=== PATIENT | female | born 1965 | race Caucasian/White ===

== ENCOUNTER 2019-09-14 10:50 | Emergency (ER) | payer OTHER ==
[2019-09-14] MEDS ORDERED: HYDROCODONE/APAP 5/325 MG TAB ONE (13:06)
[2019-09-14] MEDS ORDERED: IBUPROFEN 200 MG TAB PO ONE (13:10)
--- NOTE | 2019-09-14 13:35 | RAD REPORT ---
EXAM DESCRIPTION: RAD - Hand Right 3 View - 09/14/2019 1:19 pm CLINICAL HISTORY: PAIN COMPARISON: No comparisons FINDINGS: No bone or joint abnormality is detected. Moderate radiocarpal arthritis.
--- NOTE | 2019-09-14 13:54 | EDPHYS ---
Physician Documentation [facility] Name: Kat Britton Age: 53 yrs Sex: Female : 1965 Arrival Date: 09/14/2019 Time: 11:05 Bed 10 Private MD: ED Physician Karlos Hickey HPI: 09/14 13:02 This 53 yrs old Female presents to ER via Ambulatory with complaints of Hand pm1 Swelling. 13:02 The patient or guardian reports pain, swelling. The complaints affect the lateral pm1 aspect of right hand. Context: The problem was sustained at home, resulted from a fall, while walking, brace her fall against a wall using her right hand. 13:02 Onset: The symptoms/episode began/occurred yesterday. Modifying factors: The symptoms pm1 are alleviated by nothing, the symptoms are aggravated by movement. Associated signs and symptoms: Pertinent negatives: cyanosis distally, decreased sensation distally, numbness distally, tingling distally. Severity of symptoms: in the emergency department the symptoms are actually worse. The patient has not experienced similar symptoms in the past. The patient has not recently seen a physician. No head injury, headache, LOC, neck pain. Historical: - Allergies: 11:29 Sulfa (Sulfonamide Antibiotics); ss 11:29 tramadol; ss - Immunization history:: Flu vaccine is not up to date. - Social history:: Smoking status: Patient uses tobacco products, smokes one-half pack cigarettes per day. - Ebola Screening: : Patient denies exposure to infectious person Patient denies travel to an Ebola-affected area in the 21 days before illness onset. ROS: 13:02 Constitutional: Negative for fever, chills, and weight loss, Eyes: Negative for injury, pm1 pain, redness, and discharge, ENT: Negative for injury, pain, and discharge, Neck: Negative for injury, pain, and swelling, Cardiovascular: Negative for chest pain, palpitations, and edema, Respiratory: Negative for shortness of breath, cough, wheezing, and pleuritic chest pain, Abdomen/GI: Negative for abdominal pain, nausea, vomiting, diarrhea, and constipation, Back: Negative for injury and pain. 13:02 Skin: Negative for injury, rash, and discoloration, Neuro: Negative for headache, weakness, numbness, tingling, and seizure. 13:02 MS/extremity: Positive for pain, swelling, of the right hand, Negative for abrasion, erythema. Exam: 13:02 Constitutional: This is a well developed, well nourished patient who is awake, alert, pm1 and in no acute distress. Head/Face: Normocephalic, atraumatic. Neck: Trachea midline, no thyromegaly or masses palpated, and no cervical lymphadenopathy. Supple, full range of motion without nuchal rigidity, or vertebral point tenderness. No Meningismus. Chest/axilla: Normal chest wall appearance and motion. Nontender with no deformity. No lesions are appreciated. Cardiovascular: Regular rate and rhythm with a normal S1 and S2. No gallops, murmurs, or rubs. Normal PMI, no JVD. No pulse deficits. Respiratory: Lungs have equal breath sounds bilaterally, clear to auscultation and percussion. No rales, rhonchi or wheezes noted. No increased work of breathing, no retractions or nasal flaring. Back: No spinal tenderness. No costovertebral tenderness. Full range of motion. Skin: Warm, dry with normal turgor. Normal color with no rashes, no lesions, and no evidence of cellulitis. 13:02 Musculoskeletal/extremity: Extremities: grossly normal except: noted in the lateral aspect of right hand: swelling, tenderness, There is no evidence of decreased ROM, deformity. Vital Signs: 11:29 BP 161 / 94; Pulse 84; Resp 17; Temp 98.0; Pulse Ox 98% on R/A; Weight 47.17 kg; Height ss 5 ft. 7 in. (170.18 cm); Pain 10/10; 11:29 Body Mass Index 16.29 (47.17 kg, 170.18 cm) Procedures: 13:54 Performed Ring removal from 4th right finger. Due to swelling, patient unable to remove pm1 finger with lubricant and using compression dressing. Ring removed with ring cutter. 14:07 Splinting: Splint applied to right hand using wrist splint, applied by nurse. Examined pm1 by me, post splint application: neurovascular intact, 2+ distal pulses palpable, brisk capillary refill noted, Patient tolerated well. MDM: 12:32 Patient medically screened. [facility] 13:50 Data reviewed: vital signs. Data interpreted: Pulse oximetry: on room air is 98 %. pm1 Interpretation: normal. Counseling: I had a detailed discussion with the patient and/or guardian regarding: the historical points, exam findings, and any diagnostic results supporting the discharge/admit diagnosis, radiology results, the need for outpatient follow up, to return to the emergency department if symptoms worsen or persist or if there are any questions or concerns that arise at home. 09/14 12:47 Order name: Hand Right 3 View XRAY; Complete Time: 13:54 pm1 09/14 13:50 Order name: Wrist Splint; Complete Time: 14:06 pm1 Administered Medications: 13:16 Not Given (Patient Refused): [place] 5 mg-325 mg 1 tabs PO once; RASS on ADMIN: Combtv4, ss Very Agttd3, Agttd2, Rstlss1, AlertClm0, Drwsy-1, Lt Sdtn-2, Mod Sdtn-3, Dp Sdtn-4, UnArsble-5 13:17 Drug: Ibuprofen 600 mg Route: PO; 14:06 Follow up: Response: No adverse reaction; Pain is unchanged, physician notified Disposition: 21:25 Co-signature as Attending Physician, Karlos Hickey MD I agree with the assessment and wa plan of care. Disposition: 09/14/19 13:52 Discharged to Home. Impression: Sprain of unspecified part of right wrist and hand. - Condition is Stable. - Discharge Instructions: Wrist Splint, Hand Pain. - Medication Reconciliation Form, Thank You Letter, Antibiotic Education, Prescription Opioid Use form. - Follow up: Emergency Department; When: As needed; Reason: Worsening of condition. Follow up: Private Physician; When: 2 - 3 days; Reason: Recheck today's complaints, Continuance of care, Re-evaluation by your physician. - Problem is new. - Symptoms have improved. Signatures: Dispatcher [employer] EDCalvin Tucker MD MD cha Smirch, Shelby, RN RN Johnathan Maldonado, [employer] pm1 Karlos Hickey MD MD wa Corrections: (The following items were deleted from the chart) 14:07 13:52 09/14/2019 13:52 Discharged to Home. Impression: Sprain of unspecified part of ss right wrist and hand. Condition is Stable. Forms are Medication Reconciliation Form, Thank You Letter, Antibiotic Education, Prescription Opioid Use. Follow up: Emergency Department; When: As needed; Reason: Worsening of condition. Follow up: Private Physician; When: 2 - 3 days; Reason: Recheck today's complaints, Continuance of care, Re-evaluation by your physician. Problem is new. Symptoms have improved. pm1
--- NOTE | 2019-09-14 13:54 | ER ---
Nurse's Notes [facility] Name: Kat Britton Age: 53 yrs Sex: Female : 1965 Arrival Date: 09/14/2019 Time: 11:05 Bed 10 Private MD: Diagnosis: Sprain of unspecified part of right wrist and hand Presentation: 09/14 11:28 Presenting complaint: Patient states: R hand pain and swelling that began yesterday. No ss known injury. Transition of care: patient was not received from another setting of care. Onset of symptoms was September 13, 2019. Risk Assessment: Do you want to hurt yourself or someone else? Patient reports no desire to harm self or others. Initial Sepsis Screen: Does the patient meet any 2 criteria? No. Patient's initial sepsis screen is negative. Does the patient have a suspected source of infection? No. Patient's initial sepsis screen is negative. Care prior to arrival: None. 11:28 Method Of Arrival: Ambulatory ss 11:28 Acuity: REBECCA 4 ss Historical: - Allergies: 11:29 Sulfa (Sulfonamide Antibiotics); ss 11:29 tramadol; ss - Immunization history:: Flu vaccine is not up to date. - Social history:: Smoking status: Patient uses tobacco products, smokes one-half pack cigarettes per day. - Ebola Screening: : Patient denies exposure to infectious person Patient denies travel to an Ebola-affected area in the 21 days before illness onset. Screenin:35 Abuse screen: Denies threats or abuse. Denies injuries from another. Nutritional ss screening: No deficits noted. Tuberculosis screening: Never had TB. Fall Risk None identified. Assessment: 12:35 General: Appears uncomfortable, Behavior is calm, cooperative. Pain: Complains of pain ss in right hand Pain currently is 10 out of 10 on a pain scale. Quality of pain is described as tender, throbbing. Neuro: Level of Consciousness is awake, alert, obeys commands. Cardiovascular: Capillary refill < 3 seconds is brisk in bilateral fingers Pulses are palpable in right radial artery and left radial artery. Respiratory: Airway is patent Respiratory effort is even, unlabored, Respiratory pattern is regular, symmetrical. GI: Patient currently denies diarrhea, nausea, vomiting. : No signs and/or symptoms were reported regarding the genitourinary system. Derm: Skin is intact, is healthy with good turgor, Skin is pink, warm \T\ dry. normal. Musculoskeletal: Range of motion: intact in all extremities, Swelling present in right hand. Vital Signs: 11:29 BP 161 / 94; Pulse 84; Resp 17; Temp 98.0; Pulse Ox 98% on R/A; Weight 47.17 kg; Height ss 5 ft. 7 in. (170.18 cm); Pain 10/10; 11:29 Body Mass Index 16.29 (47.17 kg, 170.18 cm) ED Course: 11:05 Patient arrived in ED. ss 11:29 Triage completed. ss 11:29 Arm band placed on right wrist. ss 12:28 Johnathan Maldonado NP is PHCP. pm1 12:29 Karlos Hickey MD is Attending Physician. pm1 12:35 Erma Jiang RN is Primary Nurse. ss 12:35 Patient has correct armband on for positive identification. Bed in low position. Call ss light in reach. 13:26 Hand Right 3 View XRAY In Process Unspecified. EDMS 14:06 No provider procedures requiring assistance completed. Patient did not have IV access ss during this emergency room visit. Administered Medications: 13:16 Not Given (Patient Refused): [place] 5 mg-325 mg 1 tabs PO once; RASS on ADMIN: Combtv4, ss Very Agttd3, Agttd2, Rstlss1, AlertClm0, Drwsy-1, Lt Sdtn-2, Mod Sdtn-3, Dp Sdtn-4, UnArsble-5 13:17 Drug: Ibuprofen 600 mg Route: PO; ss 14:06 Follow up: Response: No adverse reaction; Pain is unchanged, physician notified Outcome: 13:52 Discharge ordered by . pm1 14:06 Discharged to home ambulatory. ss 14:06 Condition: good 14:06 Discharge instructions given to patient, Instructed on discharge instructions, follow up and referral plans. Demonstrated understanding of instructions, follow-up care, medications. 14:07 Patient left the ED. Signatures: Dispatcher [employer] EDPR Erma Jiang RN RN Johnathan Maldonado NP ASSISTANT HALL DIRECTOR pm1
[2019-09-14 14:12] VITALS: BP 161/94; TEMP 98; O2SAT 98
--- OUTSIDE RECORDS SUMMARY | 2019-09-20 21:17 | XMS REPORT ---
:1965 [facility] Address [address] [place] [address] Dr. Walter [address] [place] [id number] Care Team Providers Name Role Phone Unavailable Unavailable Unavailable Problems This patient has no known problems. Allergies, Adverse Reactions, Alerts This patient has no known allergies or adverse reactions. Medications This patient has no known medications.
--- OUTSIDE RECORDS SUMMARY | 2019-09-20 21:17 | XMS REPORT ---
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 Problem Seasonal allergic rhinitis due to J30.1 Active pollen Problem Anxiety F41.9 Active Problem Essential hypertension I10 Active Problem Myalgia M79.10 Active Problem Cardiac arrhythmia, unspecified I49.9 Active cardiac arrhythmia type Problem Nausea R11.0 Active Problem Weight loss, non-intentional R63.4 Active Problem Screening for breast cancer Z12.39 Active Problem Chronic obstructive pulmonary J44.9 Active disease, unspecified COPD type Problem Chronic fatigue R53.82 Active Problem Tinnitus of both ears H93.13 Active Problem Primary osteoarthritis involving M15.0 Active multiple joints Medications No Known Medications Results No Known Results Summary Purpose [employer]ClinicalWorks Submission
== END 2019-09-14 14:07 | disposition home or self-care (01) ==
LOC: ER 10:50
DX: S63.91XA Sprain of unspecified part of right wrist and hand, initial encounter (principal); W19.XXXA Unspecified fall, initial encounter; Y93.01 Activity, walking, marching and hiking; Y92.009 Unspecified place in unspecified non-institutional (private) residence as the place of occurrence of the external cause; Z88.2 Allergy status to sulfonamides; Z88.5 Allergy status to narcotic agent; F17.210 Nicotine dependence, cigarettes, uncomplicated
CPT/HCPCS: 99283

== ENCOUNTER 2020-06-03 14:25 | Observation (INO) | payer OTHER ==
--- OUTSIDE RECORDS SUMMARY | 2020-06-03 14:31 | XMS REPORT ---
:1965 Author Organization [employer] Care Team Providers Name Role Phone Kerry Daley Provider Role Unavailable Allergies No Known Allergies Problems Problem Type Condition Code Onset Dates Condition Statu s Problem Chronic obstructive pulmonary J44.9 Active disease, unspecified COPD type Problem Tinnitus of both ears H93.13 Active Problem Primary osteoarthritis involving M15.0 Active multiple joints Problem Hyperactive behavior F90.9 Active Problem Poor concentration R41.840 Active Problem Smoking F17.200 Active Problem Anxiety F41.9 Active Problem Weight loss, non-intentional R63.4 Active Problem Myalgia M79.10 Active Problem Essential hypertension I10 Activ e Problem Urinary incontinence, unspecified R32 Active type Problem Seasonal allergic rhinitis due to J30.1 Active pollen Problem 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
--- OUTSIDE RECORDS SUMMARY | 2020-06-03 14:31 | XMS REPORT | Continuity of Care Document ---
:1965 Author Organization [facility] t Address [address] [place] [address] Care Team Providers Name Role Phone Unavailable Unavailable Unavailable Problems Condition Condition Condition Status Onset Resolution Last Treating Co mments Source Name Details Category Date Date Treatment Clinician Date Urinary Urinary Problem Active [facility] incontin[facility] incontinen Bhumi kes - ce, ce, Memoria unspecifie unspecifie l d type d [facility] Moderate Moderate Problem [facility] of episode of Bhumi kes - recurrent recurrent Kelby rosa maria major major l depressive depressive Ou tpati disorder disorder ent Clinics Seasonal Seasonal Problem [facility] allergic allergic [facility] - rhinitis rhinitis Memori a due to due to l pollen pollen [facility] Weight Weight Problem Active [facility] loss, loss, [facility] - non-intent non-intent Me moria ional ional l [facility] Chronic Chronic Problem Active [facility] obstructiv obstructiv Bhumi kes - e e Memoria pulmonary pulmonary l disease, disease, Outpat i unspecifie unspecifie en t d COPD d COPD Clinics type type Chronic Chronic Problem Active [facility] fatigue fatigue [facility] - [facility] l [facility] Tinnitus Tinnitus Problem Active [facility] of both of both [facility] - ears ears [facility]oria l [facility] Primary Primary Problem Active [facility] osteoarthr osteoarthr Bhumi kes - itis itis Memoria involving involving l multiple multiple Outpat i joints joints ent Clinics Anxiety Anxiety Problem Active [facility] Essential Essential Problem Active [facility] hypertensi hypertensi Bhumi kes - on on [facility]oria l [facility] Myalgia Myalgia Problem Active [facility] Cardiac Cardiac Problem Active [facility] arrhythmia arrhythmia Bhumi kes - , , Memoria unspecifie unspecifie l d cardiac d cardiac Outp ati arrhythmia arrhythmia en t type type Clinics Hyperactiv Hyperactiv Problem Active [facility] e behavior e behavior [facility] Poor Poor Problem Active [facility] concentrat concentrat Bhumi kes - ion ion [facility] Smoking Smoking Problem Active [facility] Allergies, Adverse Reactions, Alerts Allergy Allergy Status Severity Reaction(s) Onset Inactive Treating Comm ents Source Name Type Date Date Clinician tramadol Adverse Active Hallucinatio C [facility] Reaction ns [facility] Sulfa Adverse Active Rash [facility] Reaction [facility] Medications Ordered Filled Start Stop Current Ordering Indication Dosage Frequency Signature Comments Components Source Medication Medication Date Date Medication? Clinician (SIG) Name Name PredniSONE PredniSONE 2019- Yes Kerry [address] [facility] 05-27 [facility] kes - 00:00: 00:00 Memoria 00 :00 [facility] Procedures This patient has no known procedures. Encounters Start End Encounter Admission Attending Care Care Encounter Source Date/Time Date/Time Type Type Clinicians Facility Department ID 2020-05-27 2020-05-27 [facility] [id number] [facility] 14[facility]34:00 14:34:00 [facility] 2019-12-24 2019-12-24 [facility] [id number] [facility] 16:33:00 16:33:00 [facility] Medicine Outpati ent Clinics 2019-12-08 2019-12-08 [facility] [id number] [address] 14:21:00 14:21:00 [facility] 2019-12-08 2019-12-08 [facility] [id number] [facility] 13[facility]00:00 13:00:00 [facility] 2019-09-14 2019-09-14 [facility] [id number] 10:15:00 10:15:00 [facility] 2019-09-02 2019-09-02 Outpatient James Martino [id number] 14:00:00 14:00:00 [facility] 2019-08-13 2019-08-13 Outpatient James Martino [id number] [facility] [address] 13:20:00 13:20:00 [facility] ent Clinics Results This patient has no known results.
[2020-06-03] MEDS ORDERED: ONDANSETRON 4 MG/2 ML VIAL ONE (15:22)
[2020-06-03] MEDS ORDERED: NA CHLORIDE 0.9% 1,000 ML ONE ×2 (15:22→17:19)
[2020-06-03 15:44] LABS: Absolute Lymphocytes (CBC) 2.6 K/uL (0.7-4.9); Basophils % 0.5 % (0-1.3); Hematocrit 42.7 % (36.0-45.0); MPV 6.8 fL (7.6-11.3); RBC Red Blood Cell Count 4.78 M/uL (3.86-4.86)
[2020-06-03] MEDS ORDERED: PROMETHAZINE INJ 25 MG/ML AMP ONE (16:06)
[2020-06-03 16:13] LABS: ALT/SGPT 23 U/L (12-78); AST/SGOT 20 U/L (15-37); Alkaline Phosphatase 63 U/L (45-117); BUN Blood Urea Nitrogen 8 mg/dL (7-18); Bicarbonate 25 mmol/L (21-32); Bilirubin Direct 0.3 mg/dL (0-0.2); Glucose Level 96 mg/dL (74-106); Lipase 99 U/L (73-393); Potassium 3.2 mmol/L (3.5-5.1); Protein, Total 7.5 g/dL (6.4-8.2); Sodium Level 122 mmol/L (136-145)
--- NOTE | 2020-06-03 17:09 | RAD REPORT ---
EXAM DESCRIPTION: CT - Abdomen Pelvis W Contrast - 06/03/2020 4:50 pm CLINICAL HISTORY: Abdominal pain COMPARISON: none. TECHNIQUE: Computed axial tomography of the abdomen pelvis was obtained. 100 cc Isovue-300 was admin istered intravenously. Oral contrast was not requested which limits evaluation of bowel. All CT scans are performed using dose optimization technique as appropriate and may include automated exposure control or mA/KV adjustment according to patient size. FINDINGS: The liver and pancreas unremarkable. Splenic granuloma. Prominence of the adrenal glands probably adenomas. Area of cortical thinning left kidney perhaps secondary to prior inflammation. 4 centimeter cystic mass within the right kidney contains internal septations. Normal appendix There is no evidence of diverticulitis. IMPRESSION: 4.7 centimeter complex cystic mass right kidney probably benign. Follow-up ultrasound 6 months recommended for re-evaluation
--- NOTE | 2020-06-03 17:48 | EDPHYS ---
Physician Documentation [facility] Name: Kat Britton Age: 54 yrs Sex: Female : 1965 Arrival Date: 06/03/2020 Time: 14:27 Bed 26 Private MD: ED Physician Jordon Gill HPI: 06/03 16:29 This 54 yrs old Female presents to ER via EMS with complaints of jr8 Nausea/Vomiting. 16:29 The patient presents to the emergency department with nausea, vomiting. Onset: The jr8 symptoms/episode began/occurred acutely, 3 day(s) ago. Possible causes: unknown. The symptoms are aggravated by nothing. The symptoms are alleviated by nothing. Associated signs and symptoms: The patient has no apparent associated signs or symptoms. Severity of symptoms: At their worst the symptoms were moderate in the emergency department the symptoms are unchanged. The patient has not experienced similar symptoms in the past. The patient has not recently seen a physician. Now feeling weak and continues to vomit. 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 - Social history:: Smoking status: Patient reports the use of cigarette tobacco products. ROS: 16:29 Eyes: Negative for injury, pain, redness, and discharge, ENT: Negative for injury, jr8 pain, and discharge, Neck: Negative for injury, pain, and swelling, Cardiovascular: Negative for chest pain, palpitations, and edema, Respiratory: Negative for shortness of breath, cough, wheezing, and pleuritic chest pain, Back: Negative for injury and pain, MS/Extremity: Negative for injury and deformity, Skin: Negative for injury, rash, and discoloration, Neuro: Negative for headache, weakness, numbness, tingling, and seizure. 16:29 Abdomen/GI: Positive for nausea and vomiting, Negative for abdominal pain, diarrhea, constipation, abdominal cramps, abdominal distension. Exam: 16:29 Eyes: Pupils equal round and reactive to light, extra-ocular motions intact. Lids and jr8 lashes normal. Conjunctiva and sclera are non-icteric and not injected. Cornea within normal limits. Periorbital areas with no swelling, redness, or edema. ENT: Nares patent. No nasal discharge, no septal abnormalities noted. Tympanic membranes are normal and external auditory canals are clear. Oropharynx with no redness, swelling, or masses, exudates, or evidence of obstruction, uvula midline. Mucous membranes moist. Neck: Trachea midline, no thyromegaly or masses palpated, and no cervical lymphadenopathy. Supple, full range of motion without nuchal rigidity, or vertebral point tenderness. No Meningismus. Cardiovascular: Regular rate and rhythm with a normal S1 and S2. No gallops, murmurs, or rubs. Normal PMI, no JVD. No pulse deficits. Respiratory: Lungs have equal breath sounds bilaterally, clear to auscultation and percussion. No rales, rhonchi or wheezes noted. No increased work of breathing, no retractions or nasal flaring. Abdomen/GI: Soft, non-tender, with normal bowel sounds. No distension or tympany. No guarding or rebound. No evidence of tenderness throughout. Back: No spinal tenderness. No costovertebral tenderness. Full range of motion. Skin: Warm, dry with normal turgor. Normal color with no rashes, no lesions, and no evidence of cellulitis. MS/ Extremity: Pulses equal, no cyanosis. Neurovascular intact. Full, normal range of motion. Neuro: Awake and alert, GCS 15, oriented to person, place, time, and situation. Cranial nerves II-XII grossly intact. Motor strength 5/5 in all extremities. Sensory grossly intact. Cerebellar exam normal. Normal gait. Vital Signs: 14:30 BP 168 / 97; Pulse 74; Resp 16; Temp 99.0(O); Pulse Ox 98% on R/A; Weight 45.36 kg; ls4 Height 5 ft. 3 in. (160.02 cm); Pain 0/10; 15:30 BP 179 / 94; Pulse 72; Resp 18; Pulse Ox 99% on R/A; Pain 0/10; ls4 16:30 BP 168 / 87; Pulse 72; Resp 16; Pulse Ox 99% on R/A; Pain 0/10; ls4 17:30 BP 163 / 89; Pulse 84; Resp 18; Temp 98.4(O); Pulse Ox 99% on R/A; Pain 0/10; ls4 18:30 BP 170 / 96; Pulse 81; Resp 16; Pulse Ox 99% on R/A; Pain 0/10; ls4 14:30 Body Mass Index 17.71 (45.36 kg, 160.02 cm) ls4 MDM: 14:45 Patient medically screened. [facility] 17:45 Data reviewed: vital signs, nurses notes, lab test result(s), radiologic studies, CT [facility] scan. Data interpreted: Pulse oximetry: on room air is 98 %. Interpretation: normal. Counseling: I had a detailed discussion with the patient and/or guardian regarding: the historical points, exam findings, and any diagnostic results supporting the discharge/admit diagnosis, lab results, radiology results, the need for further work-up and treatment in the hospital. Physician consultation: Liam Bermeo MD was called at 17:45, was contacted at 17:45, regarding admission, to the telemetry unit. consult, patient's condition, and will see patient in ED. ED course: Patient continues to vomit and dry heave. Patient has sodium of 122 and chloride of 84. Will admit for hydration . 06/03 14:45 Order name: Basic Metabolic Panel [facility] 06/03 14:45 Order name: CBC with Diff; Complete Time: 16:00 [facility] 06/03 14:45 Order name: Hepatic Function [facility] 06/03 14:45 Order name: Lipase [facility] 06/03 15:55 Order name: Urine Microscopic Only [facility] 06/03 18:19 Order name: Urinalysis [facility] 06/03 16:01 Order name: CT Abd/Pelvis - IV Contrast Only; Complete Time: 17:16 [facility] 06/03 18:19 Order name: CBC with Automated Diff [facility] 06/03 18:19 Order name: CBC with Automated Diff [facility] 06/03 18:20 Order name: Comprehensive Metabolic Panel [facility] 06/03 18:20 Order name: Comprehensive Metabolic Panel [facility] 06/03 18:25 Order name: Urine Drug Screen [facility] 06/03 14:45 Order name: IV Saline Lock; Complete Time: 15:11 [facility] 06/03 14:45 Order name: Labs collected and sent; Complete Time: 15:11 [facility] 06/03 15:55 Order name: Urine Dipstick-Ancillary (obtain specimen); Complete Time: 17:17 [facility] 06/03 18:19 Order name: Clear Liquid EDMS Administered Medications: 15:25 Drug: Zofran (Ondansetron) 4 mg Route: IVP; Site: right antecubital; ls4 15:46 Follow up: Response: No adverse reaction; No change in condition ls4 16:00 Follow up: Response: No adverse reaction ls4 15:25 Drug: NS 0.9% 1000 ml Route: IV; Rate: 1000 ml; Site: right antecubital; ls4 16:30 Follow up: IV Status: Completed infusion; IV Intake: 1000ml ls4 15:59 Drug: Phenergan 12.5 mg Route: IVP; Site: right antecubital; ls4 16:20 Follow up: Response: No adverse reaction; Marked relief of symptoms ls4 17:13 Drug: NS 0.9% 1000 ml Route: IV; Rate: 75 ml/hr; Site: right antecubital; ls4 Disposition: 06/04 07:23 Co-signature as Attending Physician, Jordon Gill MD I agree with the assessment and kdr plan of care. Disposition: 06/03/20 17:47 Hospitalization ordered by Liam Bermeo for Observation. Preliminary diagnosis are Intractable Vomiting, Hyponatremia . - Bed requested for Telemetry/MedSurg (observation). - Status is Observation. sg - Condition is Stable. - Problem is new. - Symptoms are unchanged. Signatures: Dispatcher [employer] EDTX Dario Irene RN RN sg Rittger, Kevin, MD MD [facility] Phil Fernandez PA PA 8 Venessa Curtis Elvira Quan RN RN ls4 Corrections: (The following items were deleted from the chart) 06/03 18:36 17:47 Hospitalization Ordered by Liam Bermeo MD for Observation. Preliminary eb diagnosis is Intractable Vomiting; Hyponatremia . Bed requested for Telemetry/MedSurg (observation). Status is Observation. Condition is Stable. Problem is new. Symptoms are unchanged. jr8 21:44 18:36 06/03/2020 17:47 Hospitalization Ordered by Liam Bermeo MD for Observation. sg Preliminary diagnosis is Intractable Vomiting; Hyponatremia . Bed requested for Telemetry/MedSurg (observation). Status is Observation. Condition is Stable. Problem is new. Symptoms are unchanged. eb
--- NOTE | 2020-06-03 17:48 | ER ---
Nurse's Notes [facility] Name: Kat Britton Age: 54 yrs Sex: Female : 1965 Arrival Date: 06/03/2020 Time: 14:27 Bed 26 Private MD: Diagnosis: Intractable Vomiting;Hyponatremia Presentation: 06/03 14:27 Chief complaint: Patient states: PT COMPLAINS OF NAUSEA AND VOMITTING FOR 3 DAYS. ls4 Coronavirus screen: Patient reports a cough. Patient denies shortness of breath or difficulty breathing. Patient denies measured and/or subjective temperature greater than 100.4F prior to today's visit. Patient denies travel on a cruise ship or to a country the [facility] currently lists as an affected area. Patient denies contact with known and/or suspected case of COVID-19. Proceed with normal triage. Ebola Screen: No symptoms or risks identified at this time. Initial Sepsis Screen: Does the patient meet any 2 criteria? No. Patient's initial sepsis screen is negative. Does the patient have a suspected source of infection? No. Patient's initial sepsis screen is negative. Risk Assessment: Do you want to hurt yourself or someone else? Patient reports no desire to harm self or others. Onset of symptoms was May 31, 2020 at 08:00. 14:27 Method Of Arrival: EMS: [facility] ls4 14:27 Acuity: REBECCA 3 ls4 Triage Assessment: 15:47 General: Appears uncomfortable, Behavior is calm, cooperative. Pain: Denies pain. GI: ls4 Reports nausea, vomiting. 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 - Social history:: Smoking status: Patient reports the use of cigarette tobacco products. Screenin:29 Abuse screen: Denies threats or abuse. Denies injuries from another. Nutritional ls4 screening: No deficits noted. Tuberculosis screening: No symptoms or risk factors identified. Fall Risk None identified. Assessment: 15:49 GI: Abdomen is flat, non-distended, Last BM was June 01, 2020. Bowel sounds present X 4 ls4 quads. Bruits Abd is soft and non tender X 4 quads. 17:44 Reassessment: No changes from previously documented assessment. Patient and/or family ls4 updated on plan of care and expected duration. Pain level reassessed. Patient is alert, oriented x 3, equal unlabored respirations, skin warm/dry/pink. pt complains of nausea. Phil Burns aware. 18:38 Reassessment: Patient and/or family updated on plan of care and expected duration. Pain ls4 level reassessed. Patient is alert, oriented x 3, equal unlabored respirations, skin warm/dry/pink. called to give report. Nurses are in shift change and will call back. 19:37 Reassessment: spoke to Dorinda guido unable to take report at this time. She will ls4 call me back. 19:39 Reassessment: No changes from previously documented assessment. Patient and/or family ls4 updated on plan of care and expected duration. Pain level reassessed. Patient is alert, oriented x 3, equal unlabored respirations, skin warm/dry/pink. Pt states that she does not want to stay. Explained to pt importance of staying, and she agrees at this time. 19:53 Reassessment: Pt is again stating that she does not want to stay. Pt states she can ls4 follow up with her doctor but she is claustrophobic here and feels she is better at home. called Dr Quiroz, his phone went to voice mail which is full at this time. Vital Signs: 14:30 BP 168 / 97; Pulse 74; Resp 16; Temp 99.0(O); Pulse Ox 98% on R/A; Weight 45.36 kg; ls4 Height 5 ft. 3 in. (160.02 cm); Pain 0/10; 15:30 BP 179 / 94; Pulse 72; Resp 18; Pulse Ox 99% on R/A; Pain 0/10; ls4 16:30 BP 168 / 87; Pulse 72; Resp 16; Pulse Ox 99% on R/A; Pain 0/10; ls4 17:30 BP 163 / 89; Pulse 84; Resp 18; Temp 98.4(O); Pulse Ox 99% on R/A; Pain 0/10; ls4 18:30 BP 170 / 96; Pulse 81; Resp 16; Pulse Ox 99% on R/A; Pain 0/10; ls4 14:30 Body Mass Index 17.71 (45.36 kg, 160.02 cm) ls4 ED Course: 14:27 Patient arrived in ED. ls4 14:28 [facility] jr8 14:29 Jordon Gill MD is Attending Physician. jr8 14:29 Triage completed. ls4 14:30 Arm band placed on left wrist. ls4 14:30 Patient has correct armband on for positive identification. Bed in low position. Call ls4 light in reach. Side rails up X 1. 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 Pulse ox on. NIBP on. 14:30 Warm blanket given. Verbal reassurance given. ls4 15:10 Elvira Quan, IRVIN is Primary Nurse. ls4 15:50 No provider procedures requiring assistance completed. EKG done, by ED staff, reviewed ls4 by Jordon Gill MD. Missed attempt(s): Maintain EMS IV. Dressing intact. Good blood return noted. Site clean \T\ dry. Gauge \T\ site: 18 rac. 16:50 CT Abd/Pelvis - IV Contrast Only In Process Unspecified. EDMS 17:46 Liam Bermeo MD is Hospitalizing Provider. jr8 Administered Medications: 15:25 Drug: Zofran (Ondansetron) 4 mg Route: IVP; Site: right antecubital; ls4 15:46 Follow up: Response: No adverse reaction; No change in condition ls4 16:00 Follow up: Response: No adverse reaction ls4 15:25 Drug: NS 0.9% 1000 ml Route: IV; Rate: 1000 ml; Site: right antecubital; ls4 16:30 Follow up: IV Status: Completed infusion; IV Intake: 1000ml ls4 15:59 Drug: Phenergan 12.5 mg Route: IVP; Site: right antecubital; ls4 16:20 Follow up: Response: No adverse reaction; Marked relief of symptoms ls4 17:13 Drug: NS 0.9% 1000 ml Route: IV; Rate: 75 ml/hr; Site: right antecubital; ls4 Intake: 16:30 IV: 1000ml; Total: 1000ml. ls4 Outcome: 17:47 Decision to Hospitalize by Provider. jr8 21:12 Admitted to Med/surg Report called to Jaida Lees RN ls4 21:44 Patient left the ED. sg Signatures: Dispatcher [employer] EDMS Dario Irene RN RN Phil Garcia PA PA jr8 Elvira Quan RN RN ls4
[2020-06-03] MEDS ORDERED: ZOLPIDEM TARTRATE 5 MG TABLET PO PRN (18:16)
[2020-06-03] MEDS ORDERED: ONDANSETRON 4 MG/2 ML VIAL IV PRN (18:16)
--- NOTE | 2020-06-03 18:16 | P.HP ---
Certification for Inpatient Patient admitted to: Observation With expected LOS: <2 Midnights Practitioner: I am a practitioner with admitting privileges, knowledge of patient current condition, hospital course, and medical plan of care. Services: Services provided to patient in accordance with Admission requirements found in Title 42 Section 412.3 of the Code of Federal Regulations Patient History Date of Service: 06/03/20 Reason for admission: Intractable nausea and vomiting History of Present Illness: 54 yrs old female with past medical history of hypertension, history of anxiety presents with complaints of generalized weakness and intractable nausea and vomiting which has been going on for the last 3 days but has been progressively worsening and was brought to ER. Had an episode of diarrhea. Denies any fever or chills. Denies any abdominal pain. For chest pain or shortness of breath Also complains of generalized weakness Denies any dysuria No sick contacts The patient was assessed in the ER and was found to have intractable nausea and vomiting and hyponatremia and was admitted for further management Allergies Sulfa (Sulfonamide Antibiotics) [Sulfa(Sulfonamide Antibiotics)] Allergy (Verified 02/24/12 19:02) Shortness of breath - Past Medical/Surgical History Past Medical History: Reviewed- Non-Contributory -: HTN Past Surgical History: Reviewed- Non-Contributory -: Ankle - Family History Family History: Reviewed- Non-Contributory - Social History Smoking Status: Former smoker Review of Systems 10-point ROS is otherwise unremarkable Physical Examination - Vital Signs Temperature: 98.2 F Blood Pressure: 128/76 Pulse: 78 Respirations: 18 - Physical Exam General: Alert, In no apparent distress HEENT: Atraumatic, Normocephalic Neck: Supple Respiratory: Clear to auscultation bilaterally, Normal air movement Cardiovascular: Normal pulses, Regular rate/rhythm, Normal S1 S2 Capillary refill: <2 Seconds Gastrointestinal: Soft and benign, W/out hepatosplenomegaly Musculoskeletal: No clubbing, No swelling Integumentary: No rashes, No breakdown Neurological: Normal speech, Normal strength at 5/5 x4 extr Lymphatics: No axilla or inguinal lymphadenopathy - Studies Laboratory Data (last 24 hrs) 06/03/20 15:24: WBC 16.0 H, Hgb 14.8, Hct 42.7, Plt Count 379 06/03/20 15:24: Sodium 122 L, Potassium 3.2 L, BUN 8, Creatinine 0.55, Glucose 96, Total Bilirubin 1.0, AST 20, ALT 23, Alkaline Phosphatase 63, Lipase 99 Assessment and Plan - Problems (Diagnosis) (1) Hyponatremia Current Visit: Yes Status: Acute (2) Intractable nausea and vomiting Current Visit: Yes Status: Acute - Plan Intractable nausea and vomiting Hyponatremia Hypokalemia Hypertension Renal cyst Plan Monitor closely under telemetry IV fluids hydration Zofran p.r.n. Replace electrolytes Will start on PPI Will get a UA and UDS Continue home medications and titrate as needed GI/DVT prophylaxis - Advance Directives Does patient have a Living Will: No Does patient have a Durable POA for Healthcare: No Time Spent Managing Pts Care (In Minutes): 42
[2020-06-03 18:54] LABS: Urine Bacteria <20 /HPF (<20); Urine Culture Reflex Order NOT NEEDED; Urine RBC <5 /HPF (NONE SEEN)
[2020-06-03 22:10] VITALS: O2SAT 99
[2020-06-03 22:19] VITALS: BMI 15.9
[2020-06-03] MEDS: NA CHLORIDE 0.9% 1,000 ML IV SCH (22:37)
[2020-06-03] MEDS: ACETAMINOPHEN 500 MG TAB PO PRN (23:02)
[2020-06-03 23:36] LABS: Urine Appearance CLEAR; Urine Bilirubin NEGATIVE (NEG); Urine Blood TRACE (NEG); Urine Color YELLOW; Urine Glucose NEGATIVE (NEG); Urine Protein TRACE (NEG); Urine Specific Gravity >=1.030 (1.005-1.030)
[2020-06-03 23:38] LABS: Urine Microscopic Reflex ORDER UMIC
[2020-06-03 23:46] LABS: Urine Bacteria 20-50 /HPF (<20); Urine Culture Reflex Order REFLEXED; Urine Mucus 1+ /HPF (NONE SEEN); Urine RBC <5 /HPF (NONE SEEN)
[2020-06-03] MEDS: KCL 20 MEQ/100 mL IVPB 20 MEQ/100 ML BAG IV SCH (23:46)
[2020-06-03 23:52] LABS: Barbiturates NEGATIVE (NEGATIVE); Benzodiazepines NEGATIVE (NEGATIVE); Cocaine NEGATIVE (NEGATIVE); METHAMPHETAM NEGATIVE (NEGATIVE); Methadone NEGATIVE (NEGATIVE); Opiates NEGATIVE (NEGATIVE); Phencyclidine NEGATIVE (NEGATIVE); THC Cannibis POSITIVE (NEGATIVE)
[2020-06-04] MEDS ORDERED: HYDRALAZINE HCL 20 MG/ML VIAL IV PRN (02:19)
[2020-06-04] MEDS: NA CHLORIDE 0.9% 1,000 ML IV SCH ×2 (02:22→10:07)
[2020-06-04] MEDS: KCL 20 MEQ/100 mL IVPB 20 MEQ/100 ML BAG IV SCH (02:22)
[2020-06-04 05:44] LABS: Absolute Lymphocytes (CBC) 2.5 K/uL (0.7-4.9); Basophils % 0.3 % (0-1.3); Hematocrit 39.9 % (36.0-45.0); Lymphocytes % 18.4 % (15.3-44.8); MPV 6.9 fL (7.6-11.3); RBC Red Blood Cell Count 4.43 M/uL (3.86-4.86)
[2020-06-04 05:55] LABS: ALT/SGPT 22 U/L (12-78); AST/SGOT 16 U/L (15-37); Albumin 3.6 g/dL (3.4-5.0); Alkaline Phosphatase 60 U/L (45-117); BUN Blood Urea Nitrogen 8 mg/dL (7-18); Bicarbonate 23 mmol/L (21-32); Bilirubin Total 1.1 mg/dL (0.2-1.0); Glucose Level 103 mg/dL (74-106); Potassium 3.3 mmol/L (3.5-5.1); Protein, Total 6.7 g/dL (6.4-8.2); Sodium Level 124 mmol/L (136-145)
[2020-06-04] MEDS ORDERED: POTASSIUM 25 MEQ EFFERV TAB PO ONE ×2 (07:52→08:37)
[2020-06-04] MEDS: ACETAMINOPHEN 500 MG TAB PO PRN (08:40)
[2020-06-04] MEDS ORDERED: CEFTRIAXONE/SWI 1gm 1 GM/10 ML SYR IVP SCH (09:00)
[2020-06-04] MEDS ORDERED: HYDROCODONE/APAP 10/325 TAB PO ONE (10:52)
--- NOTE | 2020-06-04 13:05 | P.DS ---
Admission Date: 06/03/20 Discharge Date: 06/04/20 Disposition: ROUTINE DISCHARGE Discharge Condition: GOOD Reason for Admission: Intractable nausea and vomiting - Problems (1) Hyponatremia Status: Acute (2) Intractable nausea and vomiting Status: Acute Brief History of Present Illness: 54 yrs old female with past medical history of hypertension, history of anxiety presents with complaints of generalized weakness and intractable nausea and vomiting which has been going on for the last 3 days but has been progressively worsening and was brought to ER. Had an episode of diarrhea. Denies any fever or chills. Denies any abdominal pain. For chest pain or shortness of breath Also complains of generalized weakness Denies any dysuria No sick contacts The patient was assessed in the ER and was found to have intractable nausea and vomiting and hyponatremia and was admitted for further management Hospital Course: Intractable nausea and vomiting Hyponatremia Hypokalemia Hypertension Cannabis hyperemesis Renal cyst course the patient was admitted and was monitored closely under telemetry. For hypernatremia she was started on IV fluids and corrected electrolytes. With nausea got better and she has been tolerating p.o.. she wanted go home and is being discharged home today in a stable condition with advice to follow up with PCP in 1 week and also with GI if symptoms recurs Advised against usage of marijuana Vital Signs/Physical Exam: Temp Pulse Resp BP Pulse Ox 97.8 F 78 18 177/86 H 98 06/04/20 08:00 06/04/20 08:00 06/04/20 08:00 06/04/20 08:00 06/04/20 08:00 General: Alert, In no apparent distress HEENT: Atraumatic, Normocephalic Neck: Supple Respiratory: Clear to auscultation bilaterally Cardiovascular: Normal pulses, Regular rate/rhythm Capillary refill: <2 Seconds Gastrointestinal: Soft and benign, W/out hepatosplenomegaly Musculoskeletal: No clubbing Laboratory Data at Discharge: WBC 13.7 K/uL (4.3-10.9) H D 06/04/20 05:09 Hgb 13.8 g/dL (12.0-15.0) 06/04/20 05:09 Hct 39.9 % (36.0-45.0) 06/04/20 05:09 Plt Count 371 K/uL (152-406) 06/04/20 05:09 Sodium 124 mmol/L (136-145) L 06/04/20 05:09 Potassium 3.7 mmol/L (3.5-5.1) 06/04/20 10:40 BUN 8 mg/dL (7-18) 06/04/20 05:09 Creatinine 0.49 mg/dL (0.55-1.3) L 06/04/20 05:09 Glucose 103 mg/dL (74-106) 06/04/20 05:09 Total Bilirubin 1.1 mg/dL (0.2-1.0) H 06/04/20 05:09 AST 16 U/L (15-37) 06/04/20 05:09 ALT 22 U/L (12-78) 06/04/20 05:09 Alkaline Phosphatase 60 U/L (45-117) 06/04/20 05:09 Lipase 99 U/L (73-393) 06/03/20 15:24 Home Medications: Lisinopril [Zestril] 20 mg PO DAILY 06/03/20 Trazodone [Desyrel] 150 mg PO BEDTIME 06/03/20 Diet: AHA Time spent managing pt's care (in minutes): 40
[2020-06-04 14:48] VITALS: BP 183/87; TEMP 98.1
== END 2020-06-04 14:12 | disposition home or self-care (01) ==
LOC: ER 14:25 → ERHOLD 18:17 → 2ND 20:52
PROVIDERS: ADMIT Family Medicine; ATTEND Family Medicine
DX: E87.1 Hypo-osmolality and hyponatremia (principal); E87.6 Hypokalemia; R11.2 Nausea with vomiting, unspecified; F12.90 Cannabis use, unspecified, uncomplicated; I10 Essential (primary) hypertension; N28.1 Cyst of kidney, acquired; Z11.59 Encounter for screening for other viral diseases; Z79.899 Other long term (current) drug therapy; Z87.891 Personal history of nicotine dependence
CPT/HCPCS: 96361; 93005 ×2; 87088; 85025 ×2; 87086; 80048; 36415 ×2; 84132; 80076; 80307 ×8; 83690; 80053; 74177; 96375; 96374; 99285; U0002; Q9967; J0360; J2550; J3480; J0696; J7030 ×4; J2405 ×2; G0378 ×3; 81003; 81015

== ENCOUNTER 2020-12-17 11:51 | Emergency (ER) | payer OTHER ==
--- OUTSIDE RECORDS SUMMARY | 2020-12-17 11:53 | XMS REPORT | Continuity of Care Document ---
:1965 Author Organization [facility] t Address [address] [place] [address] Care Team Providers Name Role Phone Unavailable Unavailable Unavailable Problems This patient has no known problems. Allergies, Adverse Reactions, Alerts Allergy Allergy Status Severity Reaction(s) Onset Inactive Treating Comm ents Source Name Type Date Date Clinician tramadol Adverse Active Hallucinatio C [facility] Sulfa Adverse Active Rash [facility] Medications Ordered Filled Start Stop Current Ordering Indication Dosage Frequency Signature Comments Components Source Medication Medication Date Date Medication? Clinician (SIG) Name Name Andres Campos Yes Kerry [address] [facility] 7[facility]27 [place] [facility] PredniSONE PredniSONE 2020- No Kerry [address] [facility] 7[facility]17 07-27 [place] [facility] Nicotine Nicotine 2020- No Kerry [address] [facility] 7-16 11-13 [place] skin [facility] HydrOXYzine HydrOXYzine Yes Kerry [address] [facility] HCl HCl 2-18 [place] as needed [facility] Ensure Ensure 2018-11 Yes Kerry [address] [facility] Complete Complete 0-03 [place] [facility] ASA ASA Yes Kerry [address] [facility] [place] [facility] B Complex B Complex Yes Kerry not [facility] [place] defined [facility] Lisinopril Lisinopril Yes Kerry take [address] [facility] [place] tablet by [facility] mouth once [facility] Trazodone Trazodone Yes Kerry [address] [facility] HCl HCl [place] at bedtime [facility] Procedures This patient has no known procedures. Encounters Start End Encounter Admission Attending Care Care Encounter Source Date/Time Date/Time Type Type Clinicians Facility Department ID 2020-12-15 2020-12-15 Outpatient [facility] [id number] [facility] 2020-12-15 2020-12-15 Out[facility] [id number] [facility] 2020-11-15 2020-11-15 [facility] [id number] [facility] 2020-10-05 2020-10-05 [facility] [id number] [facility] 2020-10-04 2020-10-04 Out[facility] [id number] [facility] 2020-10-03 2020-10-03 [facility] [id number] [facility] 2020-09-29 2020-09-29 Outpatient [facility] [id number] [facility] 2020-08-22 2020-08-22 Outpatient [facility] [id number] [facility] 2020-06-16 2020-06-16 [facility] [id number] [facility] 15[facility]57[facility]00 15:57:00 [facility] Medicine Outpat[facility] Clinics 2020-06-08 2020-06-08 [facility] [id number] 14:00:00 14:00:00 t [facility] l Medicine Outpati ent Clinics 2020-06-06 2020-06-06 [facility] [id number] 15[facility]42:00 15:42:00 t [facility] l Medicine Outpati ent Clinics 2020-05-27 2020-05-27 [facility] [id number] 14[facility]34:00 14:34:00 t [facility] Medicine l Medicine Outpati ent Clinics 2020-05-26 2020-05-26 [facility] [id number] [address] 15:00:00 15:00:00 [facility] Medicine Medicine Outpati ent Clinics 2019-12-24 2019-12-24 [facility] [id number] [address] 16:33:00 16:33:00 t [facility] Medicine Medicine Outpati ent Clinics 2019-12-08 2019-12-08 [facility] [id number] 14:21:00 14:21:00 [facility] Medicine Medicine Outpati ent Clinics 2019-12-08 2019-12-08 [facility] [id number] [address] 13:00:00 13:00:00 [facility] Medicine Medicine Outpati ent Clinics 2019-09-14 2019-09-14 [facility] [id number] 10:15:00 10:15:00 t [facility] Medicine l Medicine Outpati ent Clinics 2019-09-02 2019-09-02 [facility] [id number] [address] 14:00:00 14:00:00 [facility] Medicine Medicine Outpati ent Clinics 2019-08-13 2019-08-13 Outpatient James Martino [id number] 13:20:00 13:20:00 [facility] Medicine Medicine Outpati ent Clinics Results This patient has no known results.
--- OUTSIDE RECORDS SUMMARY | 2020-12-17 11:53 | XMS REPORT ---
:1965 Author Organization [facility] Address 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 779736251 osteoarthritis involving multiple joints Problem Tinnitus of both H93.13 Active 7566573942377 ears Problem Weight loss, R63.4 Active 405389937 non-intentional Problem Hyperactive F90.9 Active 97347307 behavior Problem Chronic J44.9 Active 77290721 obstructive pulmonary disease, unspecified COPD type Problem Smoking F17.200 Active 16766565 Problem Chronic fatigue R53.82 Active 29244432 Problem Anxiety F41.9 Active 34959372 Problem Essential I10 Active 83132704 hypertension Problem Myalgia M79.10 Active 30586472 Problem Poor R41.840 Active 88484873 concentration ALLERGIES Allergen (clinical Drug/Non Drug Reaction Allergy Type Onset Date S tatus drug ingredient) Allergy documented on EMR Sulfa Rash Drug Allergy Active tramadol tramadol Hallucinations Drug Allergy Active ENCOUNTERS from 1965 to 2020-09-29 Encounter Location Date Provider Diagnosis [facility] [address] Sep, 2020 [place] [address] IMMUNIZATIONS No Information SOCIAL HISTORY Tobacco Use: Social History Observation Description Date Details (start date - stop date) Current Smoker Sex Assigned At : Social History Observation Description Sex Assigned At Unknown Alcohol Screen Question Answer Notes Did you have a drink containing alcohol in the past year? No Points 0 Interpretation Negative Tobacco Use/Smoking Question Answer Notes Are you a current smoker How many cigarettes a day do you smoke? 6-10 How often do you smoke cigarettes? every day Tobacco use other than smoking: Question Answer Notes Are you an other tobacco user? Yes marijuana REASON FOR REFERRAL No Information VITAL SIGNS No information MEDICATIONS Medication SIG (Take, Route, Notes Start Date End Date Status Frequency, Duration) Ensure Complete - 237 ml Orally TID Aug, Active for 30 days Lisinopril 20 MG take 1 tablet by Ac tive mouth once daily Orally Once a day for 30 Zofran 4 MG 1 tablet Orally May, Active every 12 hrs for 5 days HydrOXYzine HCl 50 MG 1 tablet as needed Dec, Active Orally every 8 hrs PRN anxiety for 30 days Trazodone HCl 150 MG 1 tablet at bedtime Active Orally Once a day for 30 B Complex Not-Taking Nicotine 7 MG/24HR 1 patch to skin Sep,Nov, Active Transdermal Once a day for 30 day(s) ASA 81 1 tab Oral daily Active Escitalopram Oxalate 1 tablet Orally Once May, Not-Taking 10 MG a day for 30 day(s) PROCEDURES No Information RESULTS No Results REASON FOR VISIT No Information MEDICAL (GENERAL) HISTORY Type Description Date Medical History Arthritis Medical History Anxiety Medical History Chronic obstructive pulmonary disease, u nspecified COPD type Medical History Depression, unspecified depression type Medical History Hypertension, unspecified type Medical History Heart disease Medical History Disturbed concentration Surgical History Breast Surgical History Left ankle Hospitalization History dehydration 06/03/2020 Goals Section No Information Health Concerns No Information MEDICAL EQUIPMENT No Information MENTAL STATUS No Information FUNCTIONAL STATUS No Information ASSESSMENTS No Information PLAN OF TREATMENT Medication Medication Name Sig Start Date Stop Date Trazodone HCl 150 MG 1 tablet at bedtime Orally Once a day for 30 Nicotine 7 MG/24HR 1 patch to skin Transdermal Once a day SepNov, for 30 day(s) Lisinopril 20 MG take 1 tablet by mouth once daily Orally Once a day for 30 Next Appt Details Provider Name:Kerry Daley 2020-10-04 09 :40:00 AM, [address], [address], [place], [address], Insurance Providers Payer Name Payer Payer Insured Patient Coverage Coverage Address Phone Name Relationship to Start Date End Date Insured [facility] [phone] Oanh Britton [address] [address]
--- OUTSIDE RECORDS SUMMARY | 2020-12-17 11:54 | XMS REPORT ---
:1965 Author Organization [facility] Address [address] [facility] [place] [address] Care Team Providers Name Role Phone Edi Unavailable [phone] PROBLEMS Type Condition ICD9-CM [id number] Onset Condition SNOMED Code Notes Code Code Dates Status Problem Urinary R32 Active 817637329 incontinence, unspecified type Problem Cardiac I49.9 Active 163708925 arrhythmia, unspecified cardiac arrhythmia type Problem Moderate episode F33.1 Active 140069599 of recurrent major depressive disorder Problem Seasonal allergic J30.1 Active 89088424 rhinitis due to pollen Problem Primary M15.0 Active 393861363 osteoarthritis involving multiple joints Problem Tinnitus of both H93.13 Active 9718211622631 ears Problem Weight loss, R63.4 Active 421236888 non-intentional Problem Hyperactive F90.9 Active 30792624 behavior Problem Chronic J44.9 Active 98867577 obstructive pulmonary disease, unspecified COPD type Problem Smoking F17.200 Active 20397464 Problem Chronic fatigue R53.82 Active 39598778 Problem Anxiety F41.9 Active 32289701 Problem Essential I10 Active 11371267 hypertension Problem Myalgia M79.10 Active 61313565 Problem Poor R41.840 Active 48745732 concentration ALLERGIES Allergen (clinical Drug/Non Drug Reaction Allergy Type Onset Date S tatus drug ingredient) Allergy documented on EMR Sulfa Rash Drug Allergy Active tramadol tramadol Hallucinations Drug Allergy Active ENCOUNTERS from 1965 to 2020-11-21 Encounter Location Date Provider Diagnosis [facility] [address] Nov, Kerry Daley Anxiety F41.9 [place] [address] IMMUNIZATIONS No Information SOCIAL HISTORY Tobacco Use: [...] Start Date End Date Status Frequency, Duration) Amlodipine Besylate 5 1 tablet Orally Once Nov, Active MG a day for 30 day(s) Lisinopril 20 MG take 1 tablet by Ac tive mouth once daily Orally Once a day for 30 B Complex Not-Taking ProAir HFA 108 (90 1 puff as needed Sep, Active Base) MCG/ACT Inhalation every 4 hrs PRN for 30 days Escitalopram Oxalate 1 tablet Orally Once May, Active 10 MG a day for 90 days Trazodone HCl 150 MG 1 tablet at bedtime Active Orally Once a day for 30 Nicotine Step 1 21 1 patch to skin Sep,Dec, 21 Active MG/24HR Transdermal Once a day for 30 day(s) ASA 81 1 tab Oral daily Active Nicotine 7 MG/24HR 1 patch to skin Sep,Nov, 21 Active Transdermal Once a day for 30 day(s) Ensure Complete - 237 ml Orally TID Aug, Active for 30 days HydrOXYzine HCl 50 MG 1 tablet as needed Dec, Active Orally every 8 hrs PRN anxiety for 30 days Zofran 4 MG 1 tablet Orally Active every 12 hrs for 90 PROCEDURES No Information RESULTS No Results REASON FOR VISIT Lab results MEDICAL (GENERAL) HISTORY Type Description Date Medical [...] No Information FUNCTIONAL STATUS No Information ASSESSMENTS Encounter Date Diagnosis Assessment Notes Treatment Notes Treatm ent Clinical Notes Nov, Anxiety (ICD-10 - F41.9) PLAN OF TREATMENT Medication Medication Name Sig Start Date Stop Date Trazodone HCl 150 MG 1 tablet at bedtime Orally Once a day for 30 Amlodipine Besylate 5 MG 1 tablet Orally Once a day for 11 Nov, 2020 30 day(s) ProAir HFA 108 (90 Base) 1 puff as needed Inhalation Sep, 0 MCG/ACT every 4 hrs PRN for 30 days Lisinopril 20 MG take 1 tablet by mouth once daily Orally Once a day for 30 Insurance Providers Payer Name Payer Payer Insured Patient Coverage Coverage Address Phone Name Relationship to Start Date End Date Insured [facility] [phone] Oanh Britton [address] [address]
--- OUTSIDE RECORDS SUMMARY | 2020-12-17 11:54 | XMS REPORT ---
:1965 Author Organization [facility] Address [address] [place] [address] Care Team Providers Name Role Phone Edi Unavailable [phone] PROBLEMS Type Condition ICD9-CM [id number] Onset Condition SNOMED Code Notes Code Code Dates Status Problem Urinary R32 Active 568251137 incontinence, unspecified type Problem Cardiac I49.9 Active 921022757 arrhythmia, unspecified cardiac arrhythmia type Problem Moderate episode F33.1 Active 745955863 of recurrent major depressive disorder Problem Seasonal allergic J30.1 Active 22899080 rhinitis due to pollen Problem Primary M15.0 Active 152013239 osteoarthritis involving multiple joints Problem Tinnitus of both H93.13 Active 2563702699393 ears Problem Weight loss, R63.4 Active 184036784 non-intentional Problem Hyperactive F90.9 Active 99559153 behavior Problem Chronic J44.9 Active 90034214 obstructive pulmonary disease, unspecified COPD type Problem Smoking F17.200 Active 65408469 Problem Chronic fatigue R53.82 Active 75088904 Problem Anxiety F41.9 Active 72185637 Problem Essential I10 Active 65114572 hypertension Problem Myalgia M79.10 Active 66959230 Problem Poor R41.840 Active 93477537 concentration ALLERGIES Allergen (clinical Drug/Non Drug Reaction Allergy Type Onset Date S tatus drug ingredient) Allergy documented on EMR Sulfa Rash Drug Allergy Active tramadol tramadol Hallucinations Drug Allergy Active ENCOUNTERS from 1965 to 2020-10-03 Encounter Location Date Provider Diagnosis [facility] [address], [place] [address] IMMUNIZATIONS No Information SOCIAL HISTORY Tobacco Use: [...] Information RESULTS No Results REASON FOR VISIT please call MEDICAL (GENERAL) HISTORY Type Description Date Medical [...] Name:Kerry Daley 2020-10-04 09 :40:00 AM, [address], [address], [place], [address], Insurance Providers Payer Name Payer Payer Insured Patient Coverage Coverage Address Phone Name Relationship to Start Date End Date Insured [facility] [phone] Oanh Britton [address] [address]
--- OUTSIDE RECORDS SUMMARY | 2020-12-17 11:54 | XMS REPORT ---
:1965 Author Organization [facility] Address [address] [place] [address] Care Team Providers Name Role Phone Edi Unavailable [phone] PROBLEMS Type Condition ICD9-CM ETN75-RS Onset Condition W/U Status Risk SNOM ED Notes Code Code Dates Status Code Problem Urinary R32 Active confirmed 642566003 incontinence, unspecified type Problem Cardiac I49.9 Active confirmed 470948585 arrhythmia, unspecified cardiac arrhythmia type Problem Moderate F33.1 Active confirmed 701827605 episode of recurrent major depressive disorder Problem Seasonal J30.1 Active confirmed 10243313 allergic rhinitis due to pollen Problem Primary M15.0 Active confirmed 732306576 osteoarthriti s involving multiple joints Problem Tinnitus of H93.13 Active confirmed 76779179 19 both ears 102 Problem Weight loss, R63.4 Active confirmed 5619936 01 non-intention al Problem Hyperactive F90.9 Active confirmed 14871377 behavior Problem Chronic J44.9 Active confirmed 99981454 obstructive pulmonary disease, unspecified COPD type Problem Smoking F17.200 Active confirmed 79235939 Problem Chronic R53.82 Active confirmed 41578951 fatigue Problem Anxiety F41.9 Active confirmed 06436337 Problem Essential I10 Active confirmed 78975282 hypertension Problem Myalgia M79.10 Active confirmed 32989117 Problem Poor R41.840 Active confirmed 72309987 concentration ALLERGIES Allergen (clinical Drug/Non Drug Reaction Allergy Type Onset Date S tatus drug ingredient) Allergy documented on EMR Sulfa Rash Drug Allergy Active tramadol tramadol Hallucinations Drug Allergy Active ENCOUNTERS from 1965 to 2020-12-15 Encounter Location Date Provider Diagnosis [address], [place] [address] IMMUNIZATIONS No Information SOCIAL HISTORY Tobacco Use: [...] daily Orally Once a day for 30 PredniSONE 20 MG 3 tabs daily x 3 Ac tive days, then 2 tabs daily x 3 days, then 1 tab daily x 5 days Orally Once a day for 11 days ProAir HFA 108 (90 1 puff as needed Sep, Active Base) MCG/ACT Inhalation every 4 hrs PRN for 30 days Escitalopram Oxalate 1 tablet Orally Once May, Active 10 MG a day for 90 days Trazodone HCl 150 MG 1 tablet at bedtime Active Orally Once a day for 30 Nicotine Step 1 21 1 patch to skin Sep,Dec, Active MG/24HR Transdermal Once a day for 30 day(s) ASA 81 1 tab Oral daily Active B Complex Not-Taking Ensure Complete - 237 ml Orally TID Aug, Active for 30 days HydrOXYzine HCl 50 MG 1 tablet as needed Dec, Active Orally every 8 hrs PRN anxiety for 30 days Zofran 4 MG 1 tablet Orally Active every 12 hrs for 90 PROCEDURES No Information RESULTS No Results REASON FOR VISIT see previous te MEDICAL (GENERAL) HISTORY Type Description Date Medical [...] daily Orally Once a day for 30 PredniSONE 20 MG 3 tabs daily x 3 days, then 2 tabs daily x 3 days, then 1 tab daily x 5 days Orally Once a day for 11 days Insurance Providers Payer Name Payer Payer Insured Patient Coverage Coverage Address Phone Name Relationship to Start Date End Date Insured [facility] [phone] Oanh Britton [address] [address]
--- OUTSIDE RECORDS SUMMARY | 2020-12-17 11:54 | XMS REPORT ---
:1965 Author Organization [facility] Address [address] [facility] [address] [facility] [place] [address] Care Team Providers Name Role Phone Edi Unavailable [phone] PROBLEMS Type Condition ICD9-CM UHB28-FV Onset Condition SNOMED Code Notes Code Code Dates Status Problem Urinary R32 Active 024284860 incontinence, unspecified type Problem Cardiac I49.9 Active 343388487 arrhythmia, unspecified cardiac arrhythmia type Problem Moderate episode F33.1 Active 169882648 of recurrent major depressive disorder Problem Seasonal allergic J30.1 Active 39948950 rhinitis due to pollen Problem Primary M15.0 Active 670381589 osteoarthritis involving multiple joints Problem Tinnitus of both H93.13 Active 1288229618450 ears Problem Weight loss, R63.4 Active 823686784 non-intentional Problem Hyperactive F90.9 Active 84519624 behavior Problem Chronic J44.9 Active 14634466 obstructive pulmonary disease, unspecified COPD type Problem Smoking F17.200 Active 22026604 Problem Chronic fatigue R53.82 Active 82356207 Problem Anxiety F41.9 Active 92506154 Problem Essential I10 Active 99938890 hypertension Problem Myalgia M79.10 Active 42036770 Problem Poor R41.840 Active 18349996 concentration ALLERGIES Allergen (clinical Drug/Non Drug Reaction Allergy Type Onset Date S tatus drug ingredient) Allergy documented on EMR Sulfa Rash Drug Allergy Active tramadol tramadol Hallucinations Drug Allergy Active ENCOUNTERS from 1965 to 2020-10-10 Encounter Location Date Provider Diagnosis [facility] [address] [facility] [address], [place] [address] IMMUNIZATIONS No Information SOCIAL HISTORY Tobacco Use: [...] Start Date End Date Status Frequency, Duration) ProAir HFA 108 (90 1 puff as needed Sep, Active Base) MCG/ACT Inhalation every 4 hrs PRN for 30 days Nicotine 7 MG/24HR 1 patch to skin Sep,Nov, Active Transdermal Once a day for 30 day(s) HydrOXYzine HCl 50 MG 1 tablet as needed Dec, Active Orally every 8 hrs PRN anxiety for 30 days Zofran 4 MG 1 tablet Orally Active every 12 hrs for 90 Lisinopril 20 MG take 1 tablet by Ac tive mouth once daily Orally Once a day for 30 ASA 81 1 tab Oral daily Active Escitalopram Oxalate 1 tablet Orally Once May, Active 10 MG a day for 90 days B Complex Not-Taking Ensure Complete - 237 ml Orally TID Aug, Active for 30 days PredniSONE 20 MG 3 tabs daily x 3 Sep, Oct, Active days, then 2 tabs daily x 3 days, then 1 tab daily x 5 days Orally Once a day for 11 days Nicotine Step 1 21 1 patch to skin Sep,Dec, Active MG/24HR Transdermal Once a day for 30 day(s) Trazodone HCl 150 MG 1 tablet at bedtime Active Orally Once a day for 30 PROCEDURES No Information RESULTS No Results REASON FOR VISIT med refill MEDICAL (GENERAL) HISTORY Type Description Date Medical [...] Medication Name Sig Start Date Stop Date ProAir HFA 108 (90 Base) 1 puff as needed Inhalation Sep, 0 MCG/ACT every 4 hrs PRN for 30 days PredniSONE 20 MG 3 tabs daily x 3 days, then 2 Sep, Oct, tabs daily x 3 days, then 1 tab daily x 5 days Orally Once a day for 11 days Escitalopram Oxalate 10 MG 1 tablet Orally Once a day May, for 90 days Nicotine Step 1 21 MG/24HR 1 patch to skin Transdermal Sep, 2 020 Dec, Once a day for 30 day(s) Zofran 4 MG 1 tablet Orally every 12 hrs for 90 Next Appt Details Provider Name:Kerry [place], 2020-11-02 10 :20:00 AM, [address] [facility], [address], [place], [address], Insurance Providers Payer Name Payer Payer Insured Patient Coverage Coverage Address Phone Name Relationship to Start Date End Date Insured [facility] [phone] Oanh Britton [address] [address]
--- OUTSIDE RECORDS SUMMARY | 2020-12-17 11:54 | XMS REPORT ---
:1965 Author Organization [facility] Address [address] [place] [address] Care Team Providers Name Role Phone Edi Unavailable [phone] PROBLEMS Type Condition ICD9-CM [id number] Onset Condition SNOMED Code Notes Code Code Dates Status Problem Urinary R32 Active 828878859 incontinence, unspecified type Problem Cardiac I49.9 Active 325440149 arrhythmia, unspecified cardiac arrhythmia type Problem Moderate episode F33.1 Active 277888850 of recurrent major depressive disorder Problem Seasonal allergic J30.1 Active 75671289 rhinitis due to pollen Problem Primary M15.0 Active 851244760 osteoarthritis involving multiple joints Problem Tinnitus of both H93.13 Active 3719345934085 ears Problem Weight loss, R63.4 Active 305896565 non-intentional Problem Hyperactive F90.9 Active 64880351 behavior Problem Chronic J44.9 Active 90108776 obstructive pulmonary disease, unspecified COPD type Problem Smoking F17.200 Active 00914844 Problem Chronic fatigue R53.82 Active 28550333 Problem Anxiety F41.9 Active 86067637 Problem Essential I10 Active 91772375 hypertension Problem Myalgia M79.10 Active 21543504 Problem Poor R41.840 Active 06384383 concentration ALLERGIES Allergen (clinical Drug/Non Drug Reaction Allergy Type Onset Date S tatus drug ingredient) Allergy documented on EMR Sulfa Rash Drug Allergy Active tramadol tramadol Hallucinations Drug Allergy Active ENCOUNTERS from 1965 to 2020-10-04 Encounter Location Date Provider Diagnosis [address] [place] Sep, Kerry Daley Anxi ety F41.9 ; [facility] [address], Smoking F17.200 ; [place] [address] Chronic obstru ctive pulmonary disea se, unspecified [employer] D type J44.9 ; Nausea R11.0 ; Vitamin B 12 deficiency E53. 8 and Cyst of right k idney N28.1 IMMUNIZATIONS No Information SOCIAL HISTORY Tobacco Use: [...] REASON FOR REFERRAL No Information VITAL SIGNS Height 65.25 in Sep, Weight 116.4 lbs Sep, Temperature 97.4 degrees Fahrenheit Sep, BMI 19.22 kg/m2 Sep, Oximetry 98 % Sep, Respiratory Rate 18 /min Sep, Blood pressure systolic 136 mm Hg Sep, Blood pressure diastolic 86 mm Hg Sep, MEDICATIONS Medication SIG (Take, Route, Notes Start Date End Date Status Frequency, Duration) ProAir HFA 108 (90 1 puff as needed Sep, Active Base) MCG/ACT Inhalation every 4 hrs PRN for 30 days Escitalopram Oxalate 1 tablet Orally Once May, Active 10 MG a day for 90 days HydrOXYzine HCl 50 MG 1 tablet as needed Dec, Active Orally every 8 hrs PRN anxiety for 30 days Nicotine 7 MG/24HR 1 patch to skin Sep,Nov, 21 Active Transdermal Once a day for 30 day(s) Zofran 4 MG 1 tablet Orally May, Active every 12 hrs for 90 days ASA 81 1 tab Oral daily Active Trazodone HCl 150 MG 1 tablet at bedtime Active Orally Once a day for 30 B Complex Not-Taking Ensure Complete - 237 [...] Transdermal Once a day for 30 day(s) Lisinopril 20 MG take 1 tablet by Ac tive mouth once daily Orally Once a day for 30 PROCEDURES No Information RESULTS No Results REASON FOR VISIT med refills [id number] MEDICAL (GENERAL) HISTORY Type Description Date Medical [...] Notes Treatment Notes Treatm ent Clinical Notes Sep, Anxiety (ICD-10 - will restart the F41.9) esotalapram today Sep, Smoking (ICD-10 - step 1 ordered F17.200) Sep, Chronic obstructive pulmonary disease, unspecified COPD type (ICD-10 - J44.9) Sep, Nausea (ICD-10 - referral to GI R11.0) Sep, Vitamin B 12 will draw level deficiency (ICD-10 - E53.8) Sep, Cyst of right MRI ordered and kidney (ICD-10 - faxed to [facility] N28.1) PLAN OF TREATMENT Medication Medication Name Sig Start Date Stop Date ProAir HFA 108 (90 Base) 1 puff as needed Inhalation Sep, 0 MCG/ACT every 4 hrs PRN for 30 days PredniSONE 20 MG 3 tabs daily x 3 days, then 2 Sep, Oct, tabs daily x 3 days, then 1 tab daily x 5 days Orally Once a day for 11 days Zofran 4 MG 1 tablet Orally every 12 hrs May, for 90 days Nicotine Step 1 21 MG/24HR 1 patch to skin Transdermal Sep, 020 Dec, Once a day for 30 day(s) Escitalopram Oxalate 10 MG 1 tablet Orally Once a day May, for 90 days Treatment Notes Assessment Notes Clinical Notes Anxiety will restart the esotalapram today Smoking step 1 ordered Nausea referral to GI Vitamin B 12 deficiency will draw level Cyst of right kidney MRI ordered and faxed to [facility] Treatment Notes Test Name Order Date Vitamin B12 2020-10-04 Comp. Metabolic Panel (14) (CMP) 2020-10-04 Ultrasound : Kidneys 2020-10-04 Next Appt Details 4 Weeks Reason: Provider Name:Kerry Daley, 2020-11-02 10 :20:00 AM, [address], [address], [place], [address], Insurance Providers Payer Name Payer Payer Insured Patient Coverage Coverage Address Phone Name Relationship to Start Date End Date Insured [facility] [phone] Oanh Britton [address] [address]
--- OUTSIDE RECORDS SUMMARY | 2020-12-17 11:54 | XMS REPORT ---
:1965 Author Organization [facility] Address [address] [place] [address] Care Team Providers Name Role Phone Edi Unavailable [phone] PROBLEMS Type Condition ICD9-CM [id number] Onset Condition W/U Status Risk SNOM ED Notes Code Code Dates Status Code Problem Urinary R32 Active confirmed 989990166 incontinence, unspecified type Problem Cardiac I49.9 Active confirmed 012645314 arrhythmia, unspecified cardiac arrhythmia type Problem Moderate F33.1 Active confirmed 750599585 episode of recurrent major depressive disorder Problem Seasonal J30.1 Active confirmed 27569695 allergic rhinitis due to pollen Problem Primary M15.0 Active confirmed 033022396 osteoarthriti s involving multiple joints Problem Tinnitus of H93.13 Active confirmed 77240811 19 both ears 102 Problem Weight loss, R63.4 Active confirmed 0094615 01 non-intention al Problem Hyperactive F90.9 Active confirmed 03043509 behavior Problem Chronic J44.9 Active confirmed 46749032 obstructive pulmonary disease, unspecified COPD type Problem Smoking F17.200 Active confirmed 34130130 Problem Chronic R53.82 Active confirmed 22537877 fatigue Problem Anxiety F41.9 Active confirmed 72084850 Problem Essential I10 Active confirmed 59142399 hypertension Problem Myalgia M79.10 Active confirmed 38668271 Problem Poor R41.840 Active confirmed 30150888 concentration ALLERGIES Allergen (clinical Drug/Non Drug Reaction Allergy Type Onset Date S tatus drug ingredient) Allergy documented on EMR Sulfa Rash Drug Allergy Active tramadol tramadol Hallucinations Drug Allergy Active ENCOUNTERS from 1965 to 2020-12-15 Encounter Location Date Provider Diagnosis [address] [place] Dec, Kerry Daley Chr on[facility] obstructive [facility] [address], [place] [address] unspecified [place] type J44.9 IMMUNIZATIONS No Information SOCIAL HISTORY Tobacco Use: [...] Information RESULTS No Results REASON FOR VISIT Rx Refill MEDICAL (GENERAL) HISTORY Type Description Date Medical [...] Notes Treatment Notes Treatm ent Clinical Notes Dec, Chronic obstructive pulmonary disease, unspecified COPD type (ICD-10 - J44.9) PLAN OF TREATMENT Medication Medication Name Sig [...] Relationship to Start Date End Date Insured [facility] [phone] Oanh Britton [address] [address]
[2020-12-17] MEDS ORDERED: MEPERIDINE HCL 50 MG/ML ONE (12:35)
[2020-12-17] MEDS ORDERED: dexAMETHasone 10 MG/ML VIAL ONE (12:35)
--- NOTE | 2020-12-17 13:17 | EDPHYS ---
Physician Documentation [facility] [place], [place] Name: Kat Britton Age: 55 yrs Sex: Female : 1965 Arrival Date: 12/17/2020 Time: 11:54 Bed 15 Private MD: ED Physician Geraldo Molina HPI: 12/17 13:11 This 55 yrs old Female presents to ER via Ambulatory with complaints of Back rn Pain. 13:11 The patient presents with pain that is acute. The symptoms are located in the thoracic rn area. 13:11 Onset: The symptoms/episode began/occurred 1 week(s) ago. The pain does not radiate. rn Associated signs and symptoms: Pertinent negatives: abdominal pain, chest pain, dysuria, fever, hematuria, incontinence, nausea, numbness, tingling, urinary retention, vomiting, weakness. Modifying factors: The patient symptoms are alleviated by remaining still, the patient symptoms are aggravated by any movement. Severity of symptoms: At their worst the symptoms were moderate, in the emergency department the symptoms are unchanged. The patient has experienced similar episodes in the past. The patient has not recently seen a physician. Reports has had back issues in past, now having 1 week of mid scapular pain, no fever, no trauma, reports has been moving heavy furniture by herself. No chest pain/sob/abd pain. No focal weakness or numbness. Hurts to move/twist/lift arms. Better when laying still. . Historical: - Allergies: 12:13 Sulfa (Sulfonamide Antibiotics); iw 12:13 tramadol; iw - Home Meds: 12:13 escitalopram oxalate 10 mg oral tab 1 tab once daily [Active]; trazodone 150 mg Oral iw tab nightly [Active]; prednisone 20 mg Oral tab once daily [Active]; amlodipine 5 mg tab 1 tab once daily [Active]; 13:25 lisinopril Oral [Active]; zb - PMHx: 12:13 Hypertension; iw - PSHx: 12:13 breast; ankle; iw - Immunization history:: Adult Immunizations not up to date. - Social history:: Smoking status: Patient reports the use of cigarette tobacco products. - Family history:: not pertinent. - Hospitalizations: : No recent hospitalization is reported. ROS: 13:12 Constitutional: Negative for fever, chills, and weight loss, Eyes: Negative for injury, rn pain, redness, and discharge, Neck: Negative for injury, pain, and swelling, Cardiovascular: Negative for chest pain, palpitations, and edema, Respiratory: Negative for shortness of breath, cough, wheezing, and pleuritic chest pain, Abdomen/GI: Negative for abdominal pain, nausea, vomiting, diarrhea, and constipation, Back: + mid scapular pain MS/Extremity: Negative for injury and deformity, Skin: Negative for injury, rash, and discoloration, Neuro: Negative for headache, weakness, numbness, tingling, and seizure. Exam: 13:12 Constitutional: This is a well developed, well nourished patient who is awake, alert, rn appears uncomfortable Head/Face: Normocephalic, atraumatic. Neck: Trachea midline, no masses palpated, and no cervical lymphadenopathy. Supple, full range of motion without nuchal rigidity, or vertebral point tenderness. No Meningismus. Cardiovascular: Regular rate and rhythm. No pulse deficits. Respiratory: No increased work of breathing, no retractions or nasal flaring. Abdomen/GI: soft, non-tender Back: No spinal tenderness. + mid scapular bilateral muscular tenderness, no skin changes, no masses Skin: Warm, dry with normal turgor. Normal color with no rashes, no lesions, and no evidence of cellulitis. MS/ Extremity: Pulses equal, no cyanosis. Neurovascular intact. Full, normal range of motion. Equal circumference. Neuro: Awake and alert, GCS 15, oriented to person, place, time, and situation Vital Signs: 12:08 BP 185 / 99; Pulse 96; Resp 16; Temp 97.4; Pulse Ox 100% on R/A; Weight 52.62 kg; iw Height 5 ft. 7 in. (170.18 cm); Pain 10/10; 13:20 BP 135 / 75; Pulse 78; Resp 16; Pulse Ox 99% on R/A; zb 12:08 Body Mass Index 18.17 (52.62 kg, 170.18 cm) iw MDM: 12:02 Patient medically screened. rn 13:12 Differential diagnosis: chronic back pain, Osteoarthritis radiculopathy, disc problem, rn muscular strain. Data reviewed: vital signs, nurses notes, and as a result, I will discharge patient. Counseling: I had a detailed discussion with the patient and/or guardian regarding: the historical points, exam findings, and any diagnostic results supporting the discharge/admit diagnosis, the need for outpatient follow up, to return to the emergency department if symptoms worsen or persist or if there are any questions or concerns that arise at home. Response to treatment: the patient's symptoms have mildly improved after treatment, and as a result, I will discharge patient. Special discussion: I discussed with the patient/guardian in detail that at this point there is no indication for admission to the hospital. It is understood, however, that if the symptoms persist or worsen the patient needs to return immediately for re-evaluation. Administered Medications: 12:31 Drug: Decadron 10 mg Route: IM; Site: right deltoid; zb 13:26 Follow up: Response: No adverse reaction; Marked relief of symptoms; RASS: Alert and zb Calm (0) 12:31 Drug: Demerol 50 mg Route: IM; Site: right deltoid; zb 13:00 Follow up: Response: No adverse reaction; Marked relief of symptoms zb Disposition: 12/17/20 13:17 Discharged to Home. Impression: Back pain. - Condition is Stable. - Discharge Instructions: Back Pain, Adult. - Prescriptions for Cyclobenzaprine 10 mg Oral Tablet - take 1 tablet by ORAL route every 8 hours As needed; 20 tablet. Medrol (Homero) 4 mg Oral Tablets, Dose Pack - take 1 tablet by ORAL route as directed - follow package instructions; 1 packet. - Medication Reconciliation Form, Thank You Letter, Antibiotic Education, Prescription Opioid Use form. - Follow up: Private Physician; When: As needed; Reason: Recheck today's complaints, Re-evaluation by your physician. - Problem is new. - Symptoms have improved. Signatures: Mercy Mcallister RN RN iw Nieto, Roman, MD MD rn Brown, Zipporah, RN RN zb Corrections: (The following items were deleted from the chart) 13:13 13:11 Reports has had back issues in past, . rn donald 13:25 13:17 12/17/2020 13:17 Discharged to Home. Impression: Back pain. Condition is Stable. zb Forms are Medication Reconciliation Form, Thank You Letter, Antibiotic Education, Prescription Opioid Use. Follow up: Private Physician; When: As needed; Reason: Recheck today's complaints, Re-evaluation by your physician. Problem is new. Symptoms have improved. rn
--- NOTE | 2020-12-17 13:17 | ER ---
Nurse's Notes [facility] Name: Kat Britton Age: 55 yrs Sex: Female : 1965 Arrival Date: 12/17/2020 Time: 11:54 Bed 15 Private MD: Diagnosis: Back pain Presentation: 12/17 12:08 Chief complaint: Patient states: pain between her shoulder blades X 1 week, iw intermittent but worse today, pain worsens when she moves a certain way or lifts her arm , pt denies injury but states she was working a lot a few days ago. Coronavirus screen: At this time, the client does not indicate any symptoms associated with coronavirus-19. Ebola Screen: Patient negative for fever greater than or equal to 101.5 degrees Fahrenheit, and additional compatible Ebola Virus Disease symptoms Patient denies exposure to infectious person. Patient denies travel to an Ebola-affected area in the 21 days before illness onset. No symptoms or risks identified at this time. Initial Sepsis Screen: Does the patient meet any 2 criteria? No. Patient's initial sepsis screen is negative. Does the patient have a suspected source of infection? No. Patient's initial sepsis screen is negative. Risk Assessment: Do you want to hurt yourself or someone else? Patient reports no desire to harm self or others. Onset of symptoms was December 10, 2020. 12:08 Method Of Arrival: Ambulatory iw 12:08 Acuity: REBECCA 3 iw Historical: - Allergies: 12:13 Sulfa (Sulfonamide Antibiotics); iw 12:13 tramadol; iw - Home Meds: 12:13 escitalopram oxalate 10 mg oral tab 1 tab once daily [Active]; trazodone 150 mg Oral iw tab nightly [Active]; prednisone 20 mg Oral tab once daily [Active]; amlodipine 5 mg tab 1 tab once daily [Active]; 13:25 lisinopril Oral [Active]; zb - PMHx: 12:13 Hypertension; iw - PSHx: 12:13 breast; ankle; iw - Immunization history:: Adult Immunizations not up to date. - Social history:: Smoking status: Patient reports the use of cigarette tobacco products. - Family history:: not pertinent. - Hospitalizations: : No recent hospitalization is reported. Screenin:21 Abuse screen: Denies threats or abuse. Denies injuries from another. Nutritional zb screening: No deficits noted. Tuberculosis screening: No symptoms or risk factors identified. Fall Risk None identified. Assessment: 12:15 General: Appears in no apparent distress. uncomfortable, Behavior is calm, cooperative, zb appropriate for age. Pain: Complains of pain in thoracic area Pain does not radiate. Pain currently is 9 out of 10 on a pain scale. Quality of pain is described as sharp, Pain began 1 day ago. Alleviated by rest, Aggravated by increased activity, repositioning, weight bearing, Noted to be grimacing. Neuro: Level of Consciousness is awake, alert, obeys commands, Oriented to person, place, time. Cardiovascular: Capillary refill < 3 seconds in bilateral Patient's skin is warm and dry. Respiratory: Airway is patent Respiratory effort is even, unlabored, Respiratory pattern is regular, symmetrical. GI: Abdomen is round non-distended. : No deficits noted. EENT: No deficits noted. Derm: Skin is intact, is healthy with good turgor, Skin is dry, Skin is normal, Skin temperature is warm. Musculoskeletal: Capillary refill < 3 seconds, in bilateral fingers. Range of motion: limited in left shoulder and right shoulder Swelling present in thoracic area. Vital Signs: 12:08 BP 185 / 99; Pulse 96; Resp 16; Temp 97.4; Pulse Ox 100% on R/A; Weight 52.62 kg; iw Height 5 ft. 7 in. (170.18 cm); Pain 10/10; 13:20 BP 135 / 75; Pulse 78; Resp 16; Pulse Ox 99% on R/A; zb 12:08 Body Mass Index 18.17 (52.62 kg, 170.18 cm) iw ED Course: 11:54 Patient arrived in ED. ag5 12:01 Geraldo Molina MD is Attending Physician. rn 12:09 Roxanne Gonzales RN is Primary Nurse. zb 12:12 Triage completed. iw 12:13 Arm band placed on. iw 13:24 No provider procedures requiring assistance completed. Patient did not have IV access zb during this emergency room visit. 13:25 Patient has correct armband on for positive identification. Pulse ox on. NIBP on. zb Administered Medications: 12:31 Drug: Decadron 10 mg Route: IM; Site: right deltoid; zb 13:26 Follow up: Response: No adverse reaction; Marked relief of symptoms; RASS: Alert and zb Calm (0) 12:31 Drug: Demerol 50 mg Route: IM; Site: right deltoid; zb 13:00 Follow up: Response: No adverse reaction; Marked relief of symptoms zb Outcome: 13:17 Discharge ordered by . rn 13:24 Discharged to home ambulatory. zb 13:24 Condition: stable 13:24 Discharge instructions given to patient, Instructed on discharge instructions, follow up and referral plans. medication usage, Demonstrated understanding of instructions, follow-up care, medications, Prescriptions given X 2. 13:25 Patient left the ED. zb Signatures: Mercy Mcallister RN RN iw Nieto, Roman, MD MD rn [place], Ajare [facility] Roxanne Gonzales RN RN zb
[2020-12-17 13:35] VITALS: TEMP 97.4
[2020-12-17 13:36] VITALS: BP 135/75; O2SAT 99
[2020-12-17] MEDS ORDERED: LEVALBUTEROL 1.25 MG/3 ML NEB ONE (15:28)
== END 2020-12-17 13:25 | disposition home or self-care (01) ==
LOC: ER 11:51
DX: M54.9 Dorsalgia, unspecified (principal); I10 Essential (primary) hypertension; Z72.0 Tobacco use; Z88.2 Allergy status to sulfonamides; Z88.5 Allergy status to narcotic agent
CPT/HCPCS: 96372; 99283; J1100; J2175

== ENCOUNTER 2025-07-06 17:43 | Emergency (ER) | payer OTHER ==
--- OUTSIDE RECORDS SUMMARY | 2025-07-06 17:47 | XMS REPORT | Continuity of Care Document ---
Author Name Unknown Address [address] [facility] [address] [place] [address] Organization [facility] [place] Address [address] [facility] 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 Role Phone Pcp, Patient Does Not Have A Primary Care Physic barbi Kerry Daley Attending Clinician Unavailable Jolene Segura Attending Clinician [phone] Doctor Unassigned, Marley Attending Clinician U navailable Payers Payer Name Policy Type Policy Number Effective Date Expirati on Date Source [place] [address] [id number] [facility] Problems Condition Name Condition Details Condition Category Status Onset Date Resolution Date Last Treatment Date Treating Clinician Comments Source No known active problems No known active problems Disease [facility] [id number] Right sciatic nerve pain Problem Active [facility] [id number] Primary insomnia Problem Active [facility] [id number] Cardiac arrhythmia , unspecifie d cardiac arrhythmia type Problem Active [facility] [id number] Seasonal allergic rhinitis due to pollen Problem Active [facility] [id number] Urinary incontinen ce, unspecifie d type Problem Active [facility] [id number] Chronic fatigue Problem Active [facility] [id number] Moderate episode of recurrent major depressive disorder Problem Active [facility] [id number] 102 Tinnitus of both ears Problem Active [facility] [id number] Weight loss, non-intent ional Problem Active [facility] [id number] Anxiety Problem Active [facility] [id number] Smoking Problem Active [facility] [id number] Primary osteoarthr itis involving multiple joints Problem Active [facility] [id number] Chronic obstructiv e pulmonary disease, unspecifie d COPD type Problem Active [facility] [id number] Essential hypertensi on Problem Active [facility] [id number] Myalgia Problem Active [facility] [id number] Hyperactiv e behavior Problem Active [facility] [id number] Poor concentrat ion Problem Active [facility] Allergies, Adverse Reactions, Alerts Allergy Name Allergy Type Status Severity Reaction(s) Onset Date Inactive Date Treating Clinician Comments Source 0 Drug allergy Active Rash [facility] tramadol tramadol Active Hallucinatio ns [facility] Social History Social Habit Start Date Stop Date Quantity Comments Source History of Tobacco Use Current Smoker [facility] Sex Assigned At [facility] Sexual orientation U [facility] Smoking Status Start Date Stop Date Source Current Smoker 2021-07-11 00:00:00 [facility] Tobacco smoking consumption unknown [facility] Medications Ordered Medication Name Filled Medication Name Start Date Stop Date Current Medication? Ordering Clinician Indication Dosage Frequency Signature (SIG) Comments Components Source Cyclobenzap rine HCl 5 MG Cyclobenzap rine HCl 5 MG 9 00:00: 00 07-24 00:00 :00 No 1{table t_at_be dtime_a s_neede d} QD Cyclobenza isai HCl 5 MG Cyclobenzap rine HCl 5 MG Cyclobenzap rine HCl 5 MG 3-09 00:00: 00 01-27 00:00 :00 No BID Cyclobenza isai HCl 5 MG Amlodipine Besylate 5 MG Amlodipine Besylate 5 MG 11-21 00:00: 00 No 1{table t} QD Amlodipine Besylate 5 MG Amlodipine Besylate 5 MG Amlodipine Besylate 5 MG 11-21 00:00: 00 No 1{table t} QD Amlodipine Besylate 5 MG ProAir HFA 108 (90 Base) MCG/ACT ProAir HFA 108 (90 Base) MCG/ACT 2019-11 00:00: 00 No 1{puff_ as_need ed} ProAir HFA 108 (90 Base) MCG/ACT ProAir HFA 108 (90 Base) MCG/ACT ProAir HFA 108 (90 Base) MCG/ACT 2019-11 00:00: 00 No 1{puff_ as_need ed} ProAir HFA 108 (90 Base) MCG/ACT ProAir HFA 108 (90 Base) MCG/ACT ProAir HFA 108 (90 Base) MCG/ACT 2019-11 00:00: 00 No 1{puff_ as_need ed} ProAir HFA 108 (90 Base) MCG/ACT Nicotine Step 1 21 MG/24HR Nicotine Step 1 21 MG/24HR 2019-11 00:00: 00 01-02 00:00 :00 No 1{patch _to_ski n} QD Nicotine Step 1 21 MG/24HR Nicotine Step 1 21 MG/24HR Nicotine Step 1 21 MG/24HR 2019-11 00:00: 00 01-02 00:00 :00 No 1{patch _to_ski n} QD Nicotine Step 1 21 MG/24HR PredniSONE 20 MG PredniSONE 20 MG 2019-11 00:00: 00 10-15 00:00 :00 No QD PredniSONE 20 MG PredniSONE 20 MG PredniSONE 20 MG 2019-11 00:00: 00 10-15 00:00 :00 No QD PredniSONE 20 MG Nicotine 7 MG/24HR Nicotine 7 MG/24HR 2019-11 00:00: 00 11-28 00:00 :00 No 1{patch _to_ski n} QD Nicotine 7 MG/24HR Nicotine 7 MG/24HR Nicotine 7 MG/24HR 2020-1 1-19 00:00: 00 11-28 00:00 :00 No 1{patch _to_ski n} QD Nicotine 7 MG/24HR Escitalopra m Oxalate 10 MG Escitalopra m Oxalate 10 MG 2019-0 7-29 00:00: 00 No 1{table t} QD Escitalopr am Oxalate 10 MG Escitalopra m Oxalate 10 MG Escitalopra m Oxalate 10 MG 2019-0 7-29 00:00: 00 No 1{table t} QD Escitalopr am Oxalate 10 MG Escitalopra m Oxalate 20 MG Escitalopra m Oxalate 20 MG 2019-0 7-29 00:00: 00 No 1{table t} QD Escitalopr am Oxalate 20 MG Escitalopra m Oxalate 10 MG Escitalopra m Oxalate 10 MG 2019-0 729 00:00: 00 No 1{table t} QD Escitalopr am Oxalate 10 MG Zofran Zofran 2019-0 727 00:00: 00 Yes Kerry Daley 1 tablet [facility] Zofran 4 MG Zofran 4 MG 2019-0 27 00:00: 00 No 1{table t} BID Zofran 4 MG PredniSONE PredniSONE 2019-0 17 00:00: 00 06-06 00:00 :00 No Kerry Pender 1 tablet [facility] Nicotine Nicotine 2019-0 16 00:00: 00 09-23 00:00 :00 No Kerry Pender 1 patch to skin [facility] Nicotine 14 MG/24HR Nicotine 14 MG/24HR 2019-0 -16 00:00: 00 09-23 00:00 :00 No 1{patch _to_ski n} QD Nicotine 14 MG/24HR HydrOXYzine HCl HydrOXYzine HCl 2019-0 2-18 00:00: 00 Yes Kerry Edi 1 tablet as needed [facility] HydrOXYzine HCl 50 MG HydrOXYzine HCl 50 MG 2019-0 2-18 00:00: 00 No 1{table t_as_ne eded} HydrOXYzin e HCl 50 MG HydrOXYzine HCl 50 MG HydrOXYzine HCl 50 MG 2019-0 2-18 00:00: 00 No 1{table t_as_ne eded} HydrOXYzin e HCl 50 MG HydrOXYzine HCl 50 MG HydrOXYzine HCl 50 MG 12-29 00:00: 00 No 1{table t_as_ne eded} HydrOXYzin e HCl 50 MG Ensure Complete Ensure Complete 2018-11 00:00: 00 Yes Kerry Daley 237 ml [facility] Ensure Complete - Ensure Complete - 2018-11 00:00: 00 No 237{ml} TID Ensure Complete - Ensure Complete - Ensure Complete - 2018-11 00:00: 00 No 237{ml} TID Ensure Complete - Ensure Complete - Ensure Complete - 2018-11 00:00: 00 No 237{ml} TID Ensure Complete - HYDROcodone -acetaminop hen (NORCO) 10-325 mg tablet 2014-11 01:14: 47 Yes 1{tbl} Take 1 Tab by mouth every 12 (twelve) hours as needed. [facility] TRAZODONE HCL (TRAZODONE ORAL) 2014-11 01:14: 47 Yes Take by mouth. [facility] predniSONE (ORASONE) 1 mg tablet 2014-11 01:14: 47 Yes 1mg Take 1 mg by mouth daily. [facility] cyclobenzap rine (FLEXERIL) 10 mg tablet 2014-11 00:00: 00 Yes 10mg Take 1 Tab by mouth as needed for Muscle Spasms (TO MAX OF TID). [facility] naproxen (NAPROSYN) 500 mg tablet 2014-11 00:00: 00 Yes 500mg Take 1 Tab by mouth as needed for Pain unrelieved by Tylenol (TO MAX OF BID). [facility] ASA ASA Yes Kerry Pender 1 tab [facility] B Complex B Complex Yes Kerry Pender not defined [facility] Lisinopril Lisinopril Yes Kerry Daley take 1 tablet by mouth once daily [facility] Trazodone HCl Trazodone HCl Yes Kerry Daley 1 tablet at bedtime [facility] Zofran 4 MG Zofran 4 MG No 1{table t} BID Zofran 4 MG Lisinopril 20 MG Lisinopril 20 MG No QD Lisinopril 20 MG ASA 81 ASA 81 No QD ASA 81 Trazodone HCl 150 MG Trazodone HCl 150 MG No 1{table t_at_be dtime} QD Trazodone HCl 150 MG B Complex B Complex No B Complex Lisinopril 20 MG Lisinopril 20 MG No QD Lisinopril 20 MG Trazodone HCl 150 MG Trazodone HCl 150 MG No 1{table t_at_be dtime} QD Trazodone HCl 150 MG PredniSONE 20 MG PredniSONE 20 MG No QD PredniSONE 20 MG Zofran 4 MG Zofran 4 MG No 1{table t} BID Zofran 4 MG traZODone HCl 300 MG traZODone HCl 300 MG No 1{table t_at_be dtime} QD traZODone HCl 300 MG Trazodone HCl 150 MG Trazodone HCl 150 MG No 1{table t_at_be dtime} QD Trazodone HCl 150 MG ASA 81 ASA 81 No QD ASA 81 Lisinopril 20 MG Lisinopril 20 MG No QD Lisinopril 20 MG Vital Signs Vital Name Observation Time Observation Value Comments S ource height 2021-01-17 08:00:00 65.25 [in_i] Com [facility] weight 2021-01-17 08:00:00 121.6 [lb_av] Co mmon [facility] temperature 2021-01-17 08:00:00 97.7 [degF] Com [facility] bmi 2021-01-17 08:00:00 20.08 kg/m2 Comm on [facility] oximetry 2021-01-17 08:00:00 98 % Commo n [facility] respiratory rate 2021-01-17 08:00:00 18 /min Common [facility] blood pressure systolic 2021-01-17 08:00:00 153 mm[Hg] Common [facility] blood pressure diastolic 2021-01-17 08:00:00 84 mm[Hg] Common [facility] height 2020-10-04 09:40:00 65.25 [in_i] Com mon [facility] weight 2020-10-04 09:40:00 116.4 [lb_av] Co mmon [facility] temperature 2020-10-04 09:40:00 97.4 [degF] Com mon [facility] bmi 2020-10-04 09:40:00 19.22 kg/m2 Comm on [facility] oximetry 2020-10-04 09:40:00 98 % Commo n [facility] respiratory rate 2020-10-04 09:40:00 18 /min [facility] blood pressure systolic 2020-10-04 09:40:00 136 mm[Hg] [facility] blood pressure diastolic 2020-10-04 09:40:00 86 mm[Hg] [facility] Procedures Procedure Date / Time Performed Performing Clinicia n Source REFERRAL- REQUEST/RESPONSE 2021-02-28 05:01:00 Doctor Unassigned, Marley [facility] BI SCREENING MAMMOGRAM BILATERAL 2012-11-13 21:13:00 Jolene Rubi [facility] Encounters Start Date/Time End Date/Time Encounter Type Admission Type Attending [facility] Care Facility Care Department Encounter ID Source 2021-12-06 12:15:08 Outpatient [facility] [id number] [facility] 2021-12-06 12:07:09 Outpatient Kerry Daley [facility] [id number] [facility] 2021-12-06 11:55:22 Outpatient [facility] [id number] [facility] 2021-12-06 11:33:28 Outpatient [facility] [id number] [facility] 2021-12-06 11:03:46 [facility] [id number] [facility] 2012-11-13 00:00:00 2024-12-26 04:58:38 Orders Only Jolene Rubi [facility] 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 [facility] [id number] [facility] 2021-07-12 00:00:00 2021-07-12 00:00:00 (TEL) [facility] [id number] [facility] 2021-07-11 00:00:00 2021-07-11 00:00:00 OFFICE VISIT ESTAB PT LEVEL 4 [facility] [id number] [facility] 2021-07-06 00:00:00 2021-07-06 00:00:00 (TEL) [facility] [id number] [facility] 2021-04-18 00:00:00 2021-04-18 00:00:00 (TEL) [facility] [id number] [facility] 2021-03-27 00:00:00 2021-03-27 00:00:00 (TEL) [facility] [id number] [facility] 2021-02-28 00:00:00 2021-02-28 00:00:00 Orders Only Doctor Unassigned, Marley [facility] [id number] [facility] 2021-02-23 00:00:00 2021-02-23 00:00:00 (TEL) [facility] [id number] [facility] 2021-01-17 00:00:00 2021-01-17 00:00:00 OFFICE VISIT ESTAB PT LEVEL 4 [facility] [id number] [facility] 2021-01-17 00:00:00 2021-01-17 00:00:00 (TEL) [facility] [id number] [facility] 2020-12-19 00:00:00 2020-12-19 00:00:00 (TEL) [facility]LMLC [facility] [id number] [facility] 2020-12-15 00:00:00 2020-12-15 00:00:00 (TEL) [facility] [id number] [facility] 2020-12-15 00:00:00 2020-12-15 00:00:00 (TEL) [facility] [id number] [facility] 2020-11-15 00:00:00 2020-11-15 00:00:00 (TEL) [facility] [id number] [facility] 2020-10-05 00:00:00 2020-10-05 00:00:00 (TEL) [facility] [id number] [facility] 2020-10-04 00:00:00 2020-10-04 00:00:00 OFFICE VISIT ESTAB PT LEVEL 4 [facility] [id number] [facility] 2020-10-03 00:00:00 2020-10-03 00:00:00 (TEL) [facility] [id number] [facility] 2020-09-29 00:00:00 2020-09-29 00:00:00 (TEL) [facility]C [facility] [id number] [facility] 2020-08-22 00:00:00 2020-08-22 00:00:00 (TEL) [facility] [id number] [facility] 2020-06-16 15:57:00 2020-06-16 15:57:00 Outpatient [facility] [id number] [facility] 2020-06-08 14:00:00 2020-06-08 14:00:00 Outpatient [facility] [id number] [facility] 2020-06-06 15:42:00 2020-06-06 15:42:00 [facility] [id number] [facility] 2020-05-27 14:34:00 2020-05-27 14:34:00 [facility] [id number] [facility] 2020-05-26 15:00:00 2020-05-26 15:00:00 [facility] [id number] [facility] 2019-12-24 16:33:00 2019-12-24 16:33:00 [facility] [id number] [facility] 2019-12-08 14:21:00 2019-12-08 14:21:00 [facility] Medicine [id number] [facility] 2019-12-08 13:00:00 2019-12-08 13:00:00 [facility] Medicine [id number] [facility] 2019-09-14 10:15:00 2019-09-14 10:15:00 [facility] [id number] [facility] 2019-09-02 14:00:00 2019-09-02 14:00:00 [facility] Medicine [id number] [facility] 2019-08-13 13:20:00 2019-08-13 13:20:00 [facility] [id number] [facility] Results Test Description Test Time Test Comments Results Resul t Comments Source DIGITAL MAMMOGRAM, SCREENING 4 20:03:00 *.*.*.*.*.*.*.*.*.* .*.*.*.*FINAL*.*.*. *.*.*.*.*.*.*.*.*.* .*.*Computer aided detection (CAD) utilized. Comparison is made to images from 08/02/2009. ?There is no significant interval change. ? Bilateral Breast Findings:There are scattered fibroglandular densities (25% - 50% fibroglandular). ?No significant masses, calcifications or other abnormalities are seen. KAYLYN NIELSON MD ?Personally interpreted by: MAXIMINO BROWN MD /Signed/ MAXIMINO BROWN MD [facility]
[2025-07-06 18:50] LABS: Absolute Lymphocytes (CBC) 0.7 K/uL (0.7-4.9); Hematocrit 48.9 % (36.0-45.0); Hemoglobin 16.0 g/dL (12.0-15.0); MCH 27.3 pg (27.0-35.0); MCHC 32.6 g/dL (32.0-36.0); MCV 83.7 fL (80-100); MPV 8.3 fL (7.6-11.3); Nucleated RBC Absolute Count 0.0 (0-0); Nucleated Red Blood Cells % 0.1 % (0-0); RBC Red Blood Cell Count 5.84 M/uL (3.86-4.86); White Blood Count 15.80 thou/uL (4.3-10.9)
[2025-07-06] MEDS ORDERED: PROMETHAZINE INJ 25 MG/ML AMP ONE (19:19)
[2025-07-06] MEDS ORDERED: NA CHLORIDE 0.9% 1,000 ML ONE (19:19)
[2025-07-06 19:45] LABS: PT Prothrombin Time 14.9 SECONDS (10-13.0); PTT, Activated Partial Thromb 29.6 SECONDS (27.2-37.4); Protime INR 1.33
[2025-07-06 19:51] LABS: ALT/SGPT 37.0 U/L (13-56); AST/SGOT 19.0 U/L (15-37); Albumin 2.7 g/dL (3.4-5.0); Albumin/Globulin Ratio 0.7 (1.1-1.8); Alkaline Phosphatase 131.0 U/L (45-117); Anion Gap 10.5 mEq/L (5.0-15.0); BUN Blood Urea Nitrogen 15.0 mg/dL (7-18); Globulin 3.7 g/dL (2.3-3.5); Glucose Level 120.0 mg/dL (74-106); NT PRO-BNP 1199.0 pg/mL (<125); Potassium 3.5 mEq/L (3.5-5.1); Troponin High Sensitivity 28.5 pg/mL (<58.9)
--- NOTE | 2025-07-06 20:36 | RAD REPORT ---
EXAMINATION: CT ABDOMEN AND PELVIS WITH CONTRAST CLINICAL INDICATION: Abdominal pain TECHNIQUE: CT abdomen and pelvis was performed, after the administration of 100 cc Isovue-300.. Sagit eugene and coronal reconstructions were obtained. One or more of the following dose reduction techniques were used: Automated exposure control, adjustment of the mA and kV according to patient si ze, and iterative reconstruction. Unless otherwise specified, incidental findings do not require dedicated imaging follow-up. [id number]. Oral contrast was not given which limits evaluation of bowel and appendix. COMPARISON: .2020 FINDINGS: Liver, spleen and pancreas unremarkable. Small adrenal mass is unchanged from 2020 consistent with adenomas. No follow-up recommended. 6.4 cm cystic mass right kidney containing septations has enlarged. Previously it measured 4.4 cm. Low-density areas extending to the periphery of the left kidney most prevalent in the upper pole. Thi s has the appearance of moderate. Pyelonephritis Enhancement of the left renal pelvis and left ureteral titus. No adnexal mass No evidence of diverticulitis. Moderate amount stool throughout the colon. : IMPRESSION: Moderate pyelonephritis. Enhancement of the left renal pelvs and left ureter titus probably indicatin g an ascending urinary tract infection. 6.4 cm complex cystic right renal mass has enlarged from 2020. It is recommended that patient have an MRI for order evaluation.
--- NOTE | 2025-07-06 20:43 | RAD REPORT ---
Procedure: Chest Single View HISTORY: Cough COMPARISON: 2012 FINDINGS: There is subsegmental atelectasis within the left lung base. Remainder lungs appear clear of acute in filtrate. No significant pleural effusion noted. The heart is normal size.
--- NOTE | 2025-07-06 20:53 | EDPHYS ---
Physician Documentation [facility] Name: Kat Britton Age: 59 yrs Sex: Female : 1965 Arrival Date: 07/06/2025 Time: 17:43 Bed 20 Private MD: ED Physician Geraldo Molina HPI: 07/06 22:40 This 59 yrs old Female presents to ER via Wheelchair with complaints of General kb Weakness, Fever, Nausea. 22:40 Pt is a 59-year-old female who presents for general weakness, fever, nausea, vomiting, kb abdominal pain, chest pain that started on Saturday. States that her symptoms have been getting progressively worse.. Historical: - Allergies: 18:05 Sulfa (Sulfonamide Antibiotics); jl7 18:05 tramadol; jl7 - PMHx: 18:05 Hypertension; jl7 - Immunization history:: Adult Immunizations unknown. - Infectious Disease History:: Denies. - Social history:: Smoking status: Patient reports the use of cigarette tobacco products. ROS: 22:39 Constitutional: As per HPI kb Exam: 18:32 Constitutional: This is a well developed, well nourished patient who is awake, alert, kb and in no acute distress. Head/Face: Normocephalic, atraumatic. ENT: Moist Mucous membranes Cardiovascular: Regular rate Respiratory: Respirations even and unlabored. No increased work of breathing. Talking in full sentences Skin: Warm, dry with normal turgor. Normal color. MS/ Extremity: Pulses equal, no cyanosis. Neurovascular intact. Full, normal range of motion. Neuro: Awake and alert, GCS 15, oriented to person, place, time, and situation. 18:32 ECG was reviewed by the Attending Physician. 18:32 Abdomen/GI: Inspection: abdomen appears normal, Bowel sounds: normal, Palpation: soft, in all quadrants, mild abdominal tenderness, in the left lower quadrant, Vital Signs: 18:03 BP 150 / 88; Pulse 124; Resp 20; Temp 98.2; Pulse Ox 100% ; Weight 69.85 kg; Height 5 jl7 ft. 7 in. ; Pain 8/10; 18:45 BP 145 / 75; Pulse 115; Resp 31; Pulse Ox 100% on R/A; jb4 20:35 BP 135 / 78; Pulse 101; Resp 24; Pulse Ox 98% on R/A; jb4 21:00 BP 137 / 75; Pulse 103; Resp 23; Temp 98.9(A); Pulse Ox 97% on R/A; jb4 18:03 Body Mass Index 24.12 (69.85 kg, 170.18 cm) jl7 18:03 Pain Scale: Adult jl7 MDM: 17:47 Medical Screening Exam initiated kb 21:14 Differential diagnosis: pyelonephritis, uti, pneumonia, covid. Data reviewed: vital kb signs, nurses notes. Consideration of Admission/Observation Patient was admitted/placed on observation. Escalation of care including admission/observation considered. Management of patient was discussed with the following: Hospitalist: Dr Bermeo accepts pt for admission. Historians other than the Patient: Family Member: family. Counseling: I had a detailed discussion with the patient and/or guardian regarding the historical points, exam findings, and any diagnostic results supporting the discharge/admit diagnosis, lab results, radiology results, the need for further work-up and treatment in the hospital. Refusal of service: The patient/guardian displays adequate decision making capability and despite a detailed discussion of alternatives, benefits, risks, and consequences refuses: Admission to the hospital for further work-up and treatment. ED course: Dr Bermeo went in to evaluate pt. Pt refuses to stay in the hospital. STates her mother at this hospital and she will not stay. Informed of risks. Pt awake, alert and oriented x3, has decision making capability. . 07/06 18:03 Order name: BNP; Complete Time: 19:54 kb 07/06 18:03 Order name: Blood Culture Adult (2) kb 07/06 18:03 Order name: CBC with Diff; Complete Time: 18:56 kb 07/06 18:03 Order name: CMP; Complete Time: 19:54 kb 07/06 18:03 Order name: Lactate w/ 2H reflex if indic.; Complete Time: 19:35 kb 07/06 18:03 Order name: Protime (+inr); Complete Time: 19:51 kb 07/06 18:03 Order name: Ptt, Activated; Complete Time: 19:51 kb 07/06 18:03 Order name: Troponin HS; Complete Time: 19:54 kb 07/06 18:03 Order name: UA Rfx Terrell Cult if indicated kb 07/06 18:53 Order name: Glucose, Ancillary Testing; Complete Time: 18:56 EDMS 07/06 18:03 Order name: Chest Single View XRAY; Complete Time: 20:51 kb 07/06 18:03 Order name: CT Abd/Pelvis - IV Contrast Only; Complete Time: 20:38 kb 07/06 18:03 Order name: EKG; Complete Time: 18:06 kb 07/06 18:03 Order name: Accucheck; Complete Time: 18:30 kb 07/06 18:03 Order name: Cardiac monitoring; Complete Time: 18:30 kb 07/06 18:03 Order name: EKG - Nurse/Tech; Complete Time: 18:30 kb 07/06 18:03 Order name: IV Saline Lock - Large Bore; Complete Time: 19:29 kb 07/06 18:03 Order name: Labs collected and sent; Complete Time: 19:03 kb 07/06 18:03 Order name: O2 Per Protocol; Complete Time: 18:30 kb 07/06 18:03 Order name: O2 Sat Monitoring; Complete Time: 18:30 kb 07/06 18:03 Order name: Vital Signs; Complete Time: 19:03 kb 07/06 18:55 Order name: Misc. Order: RECOLLECT BRAUN, GREEN, AND BLUE TOP; Complete Time: 19:29 rv1 EC:32 Rate is 116 beats/min. Rhythm is regular. QRS [place] is Normal. NV interval is normal at kb 104 msec. QRS interval is normal at 78 msec. QT interval is prolonged at 625 msec. Administered Medications: 19:54 Discontinued: ns 0.9% (30 ml/kg) 30 ml/kg IV at bolus once; Sepsis Protocol; to be kb given as a bolus over 90 minutes 19:29 Drug: Promethazine IM 25 mg IM once Route: IM; Site: right gluteus; jb4 20:44 Follow up: Response: No adverse reaction; Marked relief of symptoms; Nausea is decreasedjb4 19:29 Drug: NS 0.9% IV (30 ml/kg) 30 ml/kg IV at bolus once; Sepsis Protocol; to be given as jb4 a bolus over 90 minutes Route: IV; Rate: bolus; Site: left upper arm; 20:30 Follow up: Response: No adverse reaction; IV Status: Order to discontinue infusion; IV jb4 Intake: 1000ml 21:05 Drug: Rocephin IV 1 grams IV at calculated rate once; Given slow IV push per pharmacy jb4 instructions Route: IV; Rate: calculated rate; Site: left antecubital; 21:08 Follow up: Response: No adverse reaction; IV Status: Completed infusion; IV Intake: 26mgat2 Disposition Summary: 07/06/25 21:16 Discharge Ordered Notes: Location: Home(07/06/25 21:16) kb Condition: Fair(07/06/25 21:16) kb Diagnosis - Sepsis, unspecified organism(07/06/25 21:16) kb - Pyelonephritis acute(07/06/25 21:16) kb Followup: kb - With: Emergency Department - When: As needed - Reason: Worsening of condition Followup: kb - With: Private Physician - When: 2 - 3 days - Reason: Recheck today's complaints, Continuance of care, Re-evaluation by your physician Discharge Instructions: - Discharge Summary Sheet kb - Pyelonephritis, Adult, [id number] kb - Sepsis, Diagnosis, Adult kb Forms: - Medication Reconciliation Form kb - Antibiotic Education kb - Prescription Opioid Use kb - Patient Portal Instructions kb - Leadership Thank You Letter kb Prescriptions: - cefpodoxime 200 mg Oral tablet - take 1 tablet ORAL route every 12 hours with food; 20 tablet; Refills: 0, kb Product Selection Permitted Signatures: Dispatcher [employer] EDMS Radha Rodriguez, BOOKER-C BOOKER-Ckb Vince Fernandez, RN RN jb4 Mason Gibbs RN RN jl7 Lola Ryan rv1 Corrections: (The following items were deleted from the chart) 18:06 18:06 Abdomen Pelvis W Con+CT.RAD.BRZ ordered. EDWI EDMS 21:15 20:52 Inpatient Admission kb kb 21:15 20:52 Liam Bermeo kb kb 21:15 20:52 Telemetry/MedSurg (Inpatient) kb kb 21:15 20:52 Stable kb kb 21:15 20:52 new kb kb 21:15 20:52 are unchanged kb kb 21:15 20:52 Standard kb kb 21:15 20:52 kb kb 21:15 20:52 Pyelonephritis acute kb kb 21:15 20:52 Sepsis, unspecified organism kb kb
--- NOTE | 2025-07-06 20:53 | ER ---
Nurse's Notes [facility] Name: Kat Britton Age: 59 yrs Sex: Female : 1965 Arrival Date: 07/06/2025 Time: 17:43 Bed 20 Private MD: Diagnosis: Sepsis, unspecified organism;Pyelonephritis acute Presentation: 07/06 18:03 Chief complaint: Patient states: Vomiting, left abdominal pain, cough, fever x 3 days. jl7 Coronavirus screen: Client presents with at least one sign or symptom that may indicate coronavirus-19. Ebola Screen: No symptoms or risks identified at this time. Initial Sepsis Screen: Does the patient meet any 2 criteria? HR > 90 bpm. Does the patient have a suspected source of infection? No. Patient's initial sepsis screen is negative. Risk Assessment: Do you want to hurt yourself or someone else? Patient reports no desire to harm self or others. Onset of symptoms was July 04, 2025. 18:03 Method Of Arrival: Wheelchair [facility] 18:03 Acuity: REBECCA 3 jl7 Triage Assessment: 18:05 General: Appears in no apparent distress. uncomfortable, ill, Behavior is calm, jl7 cooperative. Pain: Complains of pain in left upper quadrant and left lower quadrant Pain currently is 8 out of 10 on a pain scale. GI: Reports nausea, vomiting, Patient currently denies diarrhea. Historical: - Allergies: 18:05 Sulfa (Sulfonamide Antibiotics); jl7 18:05 tramadol; jl7 - PMHx: 18:05 Hypertension; jl7 - Immunization history:: Adult Immunizations unknown. - Infectious Disease History:: Denies. - Social history:: Smoking status: Patient reports the use of cigarette tobacco products. Screenin:15 [facility] ED Fall Risk Assessment (Adult) History of falling in the last 3 months, jb4 including since admission No falls in past 3 months (0 pts) Confusion or Disorientation No (0 pts) Intoxicated or Sedated No (0 pts) Impaired Gait No (0 pts) Mobility Assist Device Used No (0 pt) Altered Elimination No (0 pt) Score/Fall Risk Level 0 - 2 = Low Risk Oriented to surroundings, Maintained a safe environment. Abuse screen: Denies threats or abuse. Nutritional screening: No deficits noted. Tuberculosis screening: No symptoms or risk factors identified. Assessment: 18:15 General: Appears in no apparent distress. uncomfortable, Behavior is cooperative, jb4 anxious. Pain: Complains of pain in back. Neuro: Level of Consciousness is awake, alert, obeys commands, Oriented to person, place, time, situation. Cardiovascular: Patient's skin is warm and dry. Respiratory: Airway is patent Respiratory effort is even, unlabored, Respiratory pattern is regular, symmetrical. GI: Abdomen is flat, non-distended, Reports nausea. Derm: Skin is intact, Skin is pink, warm \\T\\ dry. Musculoskeletal: Circulation, motion, and sensation intact. Range of motion: intact in all extremities. 19:30 Reassessment: Patient appears in no apparent distress at this time. Patient and/or jb4 family updated on plan of care and expected duration. Pain level reassessed. Patient is alert, oriented x 3, equal unlabored respirations, skin warm/dry/pink. 20:24 Reassessment: Patient appears in no apparent distress at this time. Patient and/or jb4 family updated on plan of care and expected duration. Pain level reassessed. Patient is alert, oriented x 3, equal unlabored respirations, skin warm/dry/pink. 21:30 Reassessment: Patient appears in no apparent distress at this time. Patient and/or jb4 family updated on plan of care and expected duration. Pain level reassessed. Patient is alert, oriented x 3, equal unlabored respirations, skin warm/dry/pink. Pt refusing to be admitted. Pt informed that of her diagnoses by hospitalist and ER provider and educated on why medical staff wants to keep her in the hospital. Pt continues to refuse. Explained to pt condition could worsen up to the point of . pt states " If it is my time it is my time. I am not staying in this hospital. If I get worse I will come back.". Vital Signs: 18:03 BP 150 / 88; Pulse 124; Resp 20; Temp 98.2; Pulse Ox 100% ; Weight 69.85 kg; Height 5 jl7 ft. 7 in. ; Pain 8/10; 18:45 BP 145 / 75; Pulse 115; Resp 31; Pulse Ox 100% on R/A; jb4 20:35 BP 135 / 78; Pulse 101; Resp 24; Pulse Ox 98% on R/A; jb4 21:00 BP 137 / 75; Pulse 103; Resp 23; Temp 98.9(A); Pulse Ox 97% on R/A; jb4 18:03 Body Mass Index 24.12 (69.85 kg, 170.18 cm) jl7 18:03 Pain Scale: Adult jl ED Course: 17:45 Patient arrived in ED. am2 17:47 Radha Rodriguez, [facility] kb 17:47 Geraldo Molina MD is Attending Physician. kb 18:05 Triage completed. jl7 18:05 Arm band placed on right wrist. jl7 18:08 Radiology exam delayed due to lab results not completed at this time. IV insertion nj attempt and/or patient not having appropriate IV at this time. 19:00 First set of blood cultures drawn by me, Second set of blood cultures drawn by me. ph 19:08 Chest Single View XRAY In Process Unspecified. EDMS 19:08 Lab(s) recollected, by me, sent to lab. Missed attempt(s): 22 gauge in left antecubital ph area. Bleeding controlled, band aid applied, catheter tip intact. 20:13 Vince Fernandez, RN is Primary Nurse. jb4 20:21 CT Abd/Pelvis - IV Contrast Only In Process Unspecified. EDMS 20:51 Liam Bermeo MD is Hospitalizing Provider. kb 21:34 Patient has correct armband on for positive identification. Bed in low position. Call jb4 light in reach. Side rails up X 1. Provided Education on: Need for admission.. 21:34 No provider procedures requiring assistance completed. IV discontinued, intact, jb4 bleeding controlled, No redness/swelling at site. Pressure dressing applied. Administered Medications: 19:54 Discontinued: ns 0.9% (30 ml/kg) 30 ml/kg IV at bolus once; Sepsis Protocol; to be kb given as a bolus over 90 minutes 19:29 Drug: Promethazine IM 25 mg IM once Route: IM; Site: right gluteus; jb4 20:44 Follow up: Response: No adverse reaction; Marked relief of symptoms; Nausea is decreasedjb4 19:29 Drug: NS 0.9% IV (30 ml/kg) 30 ml/kg IV at bolus once; Sepsis Protocol; to be given as jb4 a bolus over 90 minutes Route: IV; Rate: bolus; Site: left upper arm; 20:30 Follow up: Response: No adverse reaction; IV Status: Order to discontinue infusion; IV jb4 Intake: 1000ml 21:05 Drug: Rocephin IV 1 grams IV at calculated rate once; Given slow IV push per pharmacy jb4 instructions Route: IV; Rate: calculated rate; Site: left antecubital; 21:08 Follow up: Response: No adverse reaction; IV Status: Completed infusion; IV Intake: [id number] Medication: 21:00 VIS not applicable for this client. jb4 Intake: 20:30 IV: 1000ml; Total: 1000ml. jb4 21:08 IV: 10ml; Total: 1010ml. jb4 Outcome: 20:52 Decision to Hospitalize by Provider. kb 21:16 Discharge ordered by . mireya 21:34 AMA AMA form signed jb4 21:34 Condition: improved 21:34 Patient left the ED. jb4 Addendum: 07/08/2025 14:56 Addendum: Culture Results: Positive blood culture. No further action required. Patient s s left against medical advice. Signatures: Dispatcher [employer] EDMS Radha Rodriguez, WOOD EXPERIMENTAL MECHANIC-C WOOD EXPERIMENTAL MECHANIC-CkErma Henley, IRVIN RN Karol Pinon RN RN ph Bryson, James, RN RN jb4 Jamin Hunt Jahala RN RN jl7 Adri Mendoza am2 Corrections: (The following items were deleted from the chart) 07/06 20:37 20:28 BP 140 / 71; Pulse 102bpm; Resp 31bpm; Pulse Ox 99% RA; jb4 4 21:33 17:45 [facility] ED Fall Risk Assessment (Adult) History of falling in the last 3 months, jb4 including since admission No falls in past 3 months (0 pts) Confusion or Disorientation No (0 pts) Intoxicated or Sedated No (0 pts) Impaired Gait No (0 pts) Mobility Assist Device Used No (0 pt) Altered Elimination No (0 pt) Score/Fall Risk Level 0 - 2 = Low Risk Oriented to surroundings, Maintained a safe environment, jb4 21:33 17:45 Abuse screen: Denies threats or abuse. jb4 [facility] :33 17:45 Nutritional screening: No deficits noted. 4 [facility] 21:33 17:45 Tuberculosis screening: No symptoms or risk factors identified. jb4 jb4
[2025-07-06] MEDS ORDERED: CEFTRIAXONE 1000 MG/VIAL ONE (20:58)
[2025-07-06 21:43] LABS: Sqamous Epithelial <5 /HPF (None Seen); Urine Culture Reflex Order REFLEXED; Urine Microscopic Reflex YN ORDER UMIC; Urine WBC Clump Occasional /HPF (None Seen)
[2025-07-07 02:14] VITALS: BP 137/75; TEMP 98.9; O2SAT 97
== END 2025-07-06 21:34 | disposition home or self-care (01) ==
LOC: ER 17:43
DX: N10 Acute pyelonephritis (principal); A41.9 Sepsis, unspecified organism; Z72.0 Tobacco use
CPT/HCPCS: 96365; 93005; 87040 ×2; 87088; 85025; 81001; 87086; 36415; 87205 ×4; 85610; 82947; 83605; 85730; 87077 ×2; 87186 ×2; 84484; 80053; 83880; 74177; 71045; 96375; 96372; 99284; Q9967; J2550; J7030; J0696

== ENCOUNTER 2025-07-07 22:38 | Inpatient (IN) | payer MEDICAID, OTHER ==
[2025-07-08] MEDS ORDERED: CEFTRIAXONE 2000 MG/VIAL ONE (00:01)
[2025-07-08] MEDS ORDERED: NA CHLORIDE 0.9% 1,000 ML ONE (00:01)
[2025-07-08] MEDS ORDERED: CEFTRIAXONE 1000 MG/VIAL ONE (00:01)
[2025-07-08] MEDS ORDERED: HYDROCODONE/APAP 5/325 MG TAB ONE (02:33)
[2025-07-08] MEDS ORDERED: ONDANSETRON 4 MG/2 ML VIAL IV PRN (02:44)
--- NOTE | 2025-07-08 02:47 | ER ---
Nurse's Notes [facility] Name: Kat Britton Age: 59 yrs Sex: Female : 1965 Arrival Date: 07/07/2025 Time: 22:38 Bed 5 Private MD: Diagnosis: Pyelonephritis acute Presentation: 07/07 23:15 Chief complaint: Patient states: here last night and diagnosed with a UTI told to come vc1 back if not feeling any better. My stomach and my right ear also hurts. Coronavirus screen: Client denies travel out of the [place] in the last 14 days. At this time, the client does not indicate any symptoms associated with coronavirus-19. Ebola Screen: Patient negative for fever greater than or equal to 101.5 degrees Fahrenheit, and additional compatible Ebola Virus Disease symptoms Patient denies exposure to infectious person. Patient denies travel to an Ebola-affected area in the 21 days before illness onset. No symptoms or risks identified at this time. Initial Sepsis Screen: Does the patient meet any 2 criteria? No. Patient's initial sepsis screen is negative. Does the patient have a suspected source of infection? No. Patient's initial sepsis screen is negative. Risk Assessment: Do you want to hurt yourself or someone else? Patient reports no desire to harm self or others. Onset of symptoms was July 04, 2025. Care prior to arrival: None. 23:15 Method Of Arrival: Ambulatory vc1 23:15 Acuity: REBECCA 3 vc1 Triage Assessment: 23:25 General: Appears in no apparent distress. uncomfortable, Behavior is calm, cooperative, vc1 appropriate for age. Pain: Complains of pain in right ear and left lower quadrant Pain does not radiate. EENT: No deficits noted. No signs and/or symptoms were reported regarding the EENT system. Neuro: Level of Consciousness is awake, alert, obeys commands, Oriented to. Cardiovascular: Capillary refill < 3 seconds Patient's skin is warm and dry. Respiratory: Reports shortness of breath at rest Onset: The symptoms/episode began/occurred gradually, the patient has mild shortness of breath. Historical: - Allergies: 23:19 Sulfa (Sulfonamide Antibiotics); vc1 23:19 tramadol; vc1 - PMHx: 23:19 Hypertension; emphysema; vc1 - PSHx: 23:19 None; vc1 - Immunization history:: Adult Immunizations up to date. - Infectious Disease History:: Denies. - Social history:: Smoking status: Patient reports the use of cigarette tobacco products, smokes one pack cigarettes per day. Screenin:15 [facility] ED Fall Risk Assessment (Adult) History of falling in the last 3 months, jj7 including since admission No falls in past 3 months (0 pts) Confusion or Disorientation No (0 pts) Intoxicated or Sedated No (0 pts) Impaired Gait No (0 pts) Mobility Assist Device Used No (0 pt) Altered Elimination No (0 pt) Score/Fall Risk Level 0 - 2 = Low Risk Oriented to surroundings, Maintained a safe environment, Educated pt \T\ family on fall prevention, incl call for assistance when getting out of bed, Assessed \T\ reinforced patient's understanding of fall precautions. 23:21 Abuse screen: Denies threats or abuse. Nutritional screening: No deficits noted. vc1 Tuberculosis screening: No symptoms or risk factors identified. Assessment: 23:15 General: Appears in no apparent distress. comfortable, Behavior is calm, cooperative, jj7 appropriate for age. Pain: Complains of pain in left lower quadrant. Neuro: No deficits noted. Level of Consciousness is awake, alert, obeys commands, Oriented to person, place, time, situation, none. Cardiovascular: No deficits noted. Respiratory: No deficits noted. Airway is patent Respiratory effort is even, unlabored, Respiratory pattern is regular, symmetrical, Breath sounds are clear. : Reports burning with urination, pain with urination. EENT: No deficits noted. Derm: No deficits noted. Musculoskeletal: No deficits noted. 07/08 01:32 Reassessment: Patient is alert, oriented x 3, equal unlabored respirations, skin jj7 warm/dry/pink. General: Appears in no apparent distress. comfortable, Behavior is calm, cooperative, appropriate for age. 01:42 Reassessment: NOTIFIED THAT BLOOD HAS HEMOLYZED PER LAB. INFORMED WE HAVE NO ACCESS. jj7 INFORMED PT IS A DIFFICULT STICK. US WAS USED, CHARGE NURSE ALSO USED US TO ATTEMPT ACCESS. TECH ATTEMPTED 2 TIMES. PT REFUSED TO BE STUCK AGAIN. 02:39 Reassessment: ENCOURAGED TO TRY A CENTRAL FOR ACCESS. STATES HE WILL NOT DO A jj7 CENTRAL LINE DUE TO POSSIBLE COMPLICATIONS. Vital Signs: 07/07 23:15 BP 153 / 86; Pulse 104; Resp 24; Temp 99.8; Pulse Ox 98% ; Weight 69.85 kg; Height 5 vc1 ft. 7 in. ; 07/08 01:31 BP 161 / 82; Pulse 98; Resp 17 S; Pulse Ox 100% on R/A; lg3 03:33 BP 165 / 90; Pulse 100; Resp 18 S; Pulse Ox 96% on R/A; lg3 07/07 23:15 Body Mass Index 24.12 (69.85 kg, 170.18 cm) vc1 ED Course: 07/07 22:41 Patient arrived in ED. gm2 23:13 Curtis Sanchez MD is Attending Physician. tw7 23:14 Ana Maria Ferris, IRVIN is Primary Nurse. jj7 23:15 Patient has correct armband on for positive identification. Bed in low position. Call jj7 light in reach. Side rails up X 1. Adult w/ patient. Provided Education on: USE OF CALL CONNOLLY. Warm blanket given. 23:19 Triage completed. vc1 23:20 Arm band placed on right wrist. vc1 23:41 XRAY Chest (1 view) In Process Unspecified. EDMS 07/08 00:10 Missed attempt(s): 22 gauge in right antecubital area. Bleeding controlled, band aid sa1 applied, catheter tip intact. 00:18 Missed attempt(s): 20 gauge in right upper arm. Bleeding controlled, band aid applied, sa1 catheter tip intact. 01:15 Inserted saline lock: 22 gauge in left antecubital area, using aseptic technique. Blood lg3 collected. Flushed with 10 mL NS. 01:15 Initial lab(s) drawn, by ED staff, sent to lab. lg3 01:25 IV INFILTRATED NOTIFIED. jj7 01:36 Warm blanket given. jj7 02:46 Liam Bermeo MD is Hospitalizing Provider. tw7 05:01 No provider procedures requiring assistance completed. jj7 Administered Medications: 01:32 Discontinued: ns 0.9% 1000 ml IV at 1000 ml once; to be given as a bolus over 60 minuteslg3 07/07 23:54 CANCELLED (Duplicate Order): rocephin2 grams IV at calculated rate once; Given slow IV tw7 push per pharmarcy instructions 07/08 01:15 Drug: NS 0.9% IV 1000 ml IV at 1000 ml once; to be given as a bolus over 60 minutes lg3 Route: IV; Rate: 1000 ml; Site: left antecubital; 01:15 Drug: Rocephin IV 1 grams IV at calculated rate once; Given slow IV push per pharmacy lg3 instructions Route: IV; Rate: calculated rate; Site: left antecubital; 01:32 Follow up: Response: No adverse reaction; IV Status: Completed infusion; IV Intake: [id number] 02:36 Drug: HYDROcodone-acetaminophen PO 5 mg-325 mg 1 tabs PO once Route: PO; vc1 Medication: 07/07 23:15 VIS not applicable for this client. jj7 Intake: 07/08 01:32 IV: 10ml; Total: 10ml. lg3 Outcome: 02:46 Decision to Hospitalize by Provider. tw7 05:01 Admitted to Med/surg accompanied by nurse, via stretchersusanne 05:01 Condition: stable 05:01 Instructed on the need for admit, Demonstrated understanding of instructions, 05:01 Patient left the ED. jj7 Signatures: Dispatcher [employer] EDMS Angella Bran RN RN lg3 Johnna Faustin RN RN vc1 Ana Maria Ferris RN RN jj7 Nicole Gonzalez Sultan sa1 Curtis Sanchez MD MD tw7 Corrections: (The following items were deleted from the chart) 00:59 00:10 Missed attempt(s): 22 gauge antecubital area. Bleeding controlled, band aid sa1 applied, catheter tip intact. sa1
--- NOTE | 2025-07-08 02:47 | EDPHYS ---
Physician Documentation [facility] Name: Kat Britton Age: 59 yrs Sex: Female : 1965 Arrival Date: 07/07/2025 Time: 22:38 Bed 5 Private MD: ED Physician Curtis Sanchez HPI: 07/08 02:48 This 59 yrs old Female presents to ER via Ambulatory with complaints of Shortness Of tw7 Breath, Ear Pain, Pain. 02:57 59-year-old female, smoker, past medical history of hypertension, COPD, presents ED tw7 today for complaints of fever, abdominal pain, vomiting, shortness of breath. Patient reports that she was here and diagnosed with a urinary tract infection yesterday. Patient was to be admitted to the hospital yesterday but she left against medical advice. She comes back today for persistent fever, flank pain, n[place], vomiting, lightheadedness. She denies chest pain. Intermittent SOB. Urine culture from yesterday grew E. coli sensitive to ceftriaxone. Historical: - Allergies: 07/07 23:19 Sulfa (Sulfonamide Antibiotics); vc1 23:19 tramadol; vc1 - PMHx: 23:19 Hypertension; emphysema; vc1 - PSHx: 23:19 None; vc1 - Immunization history:: Adult Immunizations up to date. - Infectious Disease History:: Denies. - Social history:: Smoking status: Patient reports the use of cigarette tobacco products, smokes one pack cigarettes per day. ROS: 07/08 02:57 Eyes: Negative for injury, pain, redness, and discharge, ENT: Negative for injury, tw7 pain, and discharge, Neck: Negative for injury, pain, and swelling, Cardiovascular: Negative for chest pain, palpitations, and edema, Constitutional: Positive for body aches, chills, fatigue, fever, malaise, poor PO intake, Respiratory: Positive for shortness of breath, Negative for cough, orthopnea, sputum production, wheezing, Abdomen/GI: Positive for abdominal pain, nausea, vomiting, Negative for hematemesis, black/tarry stool, rectal pain, rectal bleeding, 03:00 MS/Extremity: Negative for injury and deformity, Skin: Negative for injury, rash, and tw7 discoloration, Exam: 03:01 Head/Face: Normocephalic, atraumatic. Eyes: Pupils equal round and reactive to light, tw7 extra-ocular motions intact. Lids and lashes normal. Conjunctiva and sclera are non-icteric and not injected. Cornea within normal limits. Periorbital areas with no swelling, redness, or edema. ENT: Nares patent. No nasal discharge, no septal abnormalities noted. Tympanic membranes are normal and external auditory canals are clear. Oropharynx with no redness, swelling, or masses, exudates, or evidence of obstruction, uvula midline. Mucous membranes moist. Neck: Trachea midline, no thyromegaly or masses palpated, and no cervical lymphadenopathy. Supple, full range of motion without nuchal rigidity, or vertebral point tenderness. No Meningismus. Chest/axilla: Normal chest wall appearance and motion. Nontender with no deformity. No lesions are appreciated. Respiratory: Lungs have equal breath sounds bilaterally, clear to auscultation and percussion. No rales, rhonchi or wheezes noted. No increased work of breathing, no retractions or nasal flaring. Neuro: Awake and alert, GCS 15, oriented to person, place, time, and situation. Cranial nerves II-XII grossly intact. Motor strength 5/5 in all extremities. Sensory grossly intact. Cerebellar exam normal. Normal gait. 03:01 Constitutional: The patient appears febrile, 03:01 Constitutional: The patient appears in no acute distress, alert, awake, comfortable, non-diaphoretic, well developed, 03:01 Cardiovascular: Rate: tachycardic, 03:01 Abdomen/GI: Palpation: moderate abdominal tenderness, in all quadrants, Vital Signs: 07/07 23:15 BP 153 / 86; Pulse 104; Resp 24; Temp 99.8; Pulse Ox 98% ; Weight 69.85 kg; Height 5 vc1 ft. 7 in. ; 07/08 01:31 BP 161 / 82; Pulse 98; Resp 17 S; Pulse Ox 100% on R/A; lg3 03:33 BP 165 / 90; Pulse 100; Resp 18 S; Pulse Ox 96% on R/A; lg3 07/07 23:15 Body Mass Index 24.12 (69.85 kg, 170.18 cm) vc1 MDM: 07/07 23:25 Medical Screening Exam initiated tw07/08 03:03 Differential diagnosis: Chronic Obstructive Pulmonary Disease pneumonia, pulmonary tw7 edema, reactive airway disease, Sepsis. Data reviewed: vital signs. 04:22 ED course: 59-year-old female is seen today with plaints of fever and flank pain. Lab tw7 performed shows a leukocytosis of 13. Normal hemoglobin. Normal platelets. Negative cardiac enzymes. Lactic acid 1.0. Procalcitonin 4.86. BNP of 691. Creatinine 1.36. Hyponatremia. Hypokalemia. CT abdomen pelvis from yesterday showed patient has acute pyelonephritis. Patient chose to leave against medical advice yesterday and returns today for the same complaints. Blood cultures are sent, patient is given IV fluid, IV antibiotics and admitted to hospitalist service for further evaluation management of acute pyelonephritis. 07/07 23:25 Order name: Basic Metabolic Panel; Complete Time: 04:20 7 07/07 23:25 Order name: CBC with Diff; Complete Time: 03:59 7 07/07 23:25 Order name: D-Dimer; Complete Time: 04:20 7 07/07 23:25 Order name: LFT's; Complete Time: 04:20 7 07/07 23:25 Order name: Magnesium; Complete Time: 04:20 7 07/07 23:25 Order name: NT PRO-BNP; Complete Time: 04:20 07/07 23:25 Order name: PT-INR; Complete Time: 04:20 tw7 07/07 23:25 Order name: Troponin HS; Complete Time: 04:20 tw7 07/07 23:45 Order name: Blood Culture Adult (2) 07/07 23:45 Order name: Lactate w/ 2H reflex if indic.; Complete Time: 04:20 tw07/07 23:46 Order name: Procalcitonin; Complete Time: 04:20 07/07 23:50 Order name: UA Rfx Terrell Cult if indicated 07/08 02:49 Order name: CBC with Automated Diff EDMS 07/08 02:49 Order name: CBC with Automated Diff EDMS 07/08 02:49 Order name: Comprehensive Metabolic Panel EDMS 07/08 02:49 Order name: Comprehensive Metabolic Panel EDMS 07/07 23:25 Order name: XRAY Chest (1 view) 07/07 23:25 Order name: Cardiac monitoring; Complete Time: 01:32 tw7 /27 23:25 Order name: EKG - Nurse/Tech; Complete Time: 07/07 23:25 Order name: IV Saline Lock; Complete Time: 07/07 23:25 Order name: Labs collected and sent; Complete Time: 07/07 23:25 Order name: O2 Per Protocol; Complete Time: 07/07 23:25 Order name: O2 Sat Monitoring; Complete Time: 07/07 23:45 Order name: Accucheck; Complete Time: 07/07 23:45 Order name: IV Saline Lock - Large Bore; Complete Time: 07/07 23:45 Order name: Vital Signs; Complete Time: 07/08 01:30 Order name: PICC Line Insertion 07/08 01:50 Order name: Labs - recollect needed [facility] Administered Medications: 01:32 Discontinued: ns 0.9% 1000 ml IV at 1000 ml once; to be given as a bolus over 60 minuteslg3 07/07 23:54 CANCELLED (Duplicate Order): rocephin2 grams IV at calculated rate once; Given slow IV tw7 push per pharmarcy instructions 07/08 01:15 Drug: NS 0.9% IV 1000 ml IV at 1000 ml once; to be given as a bolus over 60 minutes lg3 Route: IV; Rate: 1000 ml; Site: left antecubital; 01:15 Drug: Rocephin IV 1 grams IV at calculated rate once; Given slow IV push per pharmacy lg3 instructions Route: IV; Rate: calculated rate; Site: left antecubital; :32 Follow up: Response: No adverse reaction; IV Status: Completed infusion; IV Intake: [id number] 02:36 Drug: HYDROcodone-acetaminophen PO 5 mg-325 mg 1 tabs PO once Route: PO; vc1 Disposition Summary: 07/08/25 02:46 Hospitalization Ordered Notes: Hospitalization Status: Inpatient Admission tw Provider: Liam Bermeo Location: Telemetry/MedSur (Inpatient) [facility] Condition: Stable tw7 Problem: new tw7 Symptoms: have improved tw7 Bed/Room Type: Standard [facility] Room Assignment: [facility](07/08/25 03:01) [facility] Diagnosis - Pyelonephritis acute tw7 Forms: - Medication Reconciliation Form tw7 - SBAR form tw7 - Leadership Thank You Letter Signatures: Dispatcher [employer] POONAM Angella Bran RN RN lg3 Johnna Faustin RN RN vc1 Naheed Mistry [facility] Curtis Sanchez MD MD 7 Corrections: (The following items were deleted from the chart) 07/07 23:26 23:26 BASIC METABOLIC PANEL+C.LAB.BRZ ordered. EDMS EDMS 23:26 23:26 CBC+H.LAB.BRZ ordered. EDMS EDMS 23:26 23:26 D-DIMER+COAG.LAB.BRZ ordered. EDMS EDMS 23:26 23:26 HEPATIC FUNCTION+C.LAB.BRZ ordered. EDMS EDMS 23:26 23:26 MAGNESIUM+C.LAB.BRZ ordered. EDMS EDMS 23:26 23:26 PROBNP+C.LAB.BRZ ordered. EDMS EDMS 23:26 23:26 PROTIME (+INR)+COAG.LAB.BRZ ordered. EDMS EDMS 23:26 23:26 Troponin High Sensitivity+C.LAB.BRZ ordered. EDMS EDMS 23:26 23:26 Chest Single View+RAD.RAD.BRZ ordered. EDAK EDMS 23:54 23:46 Rocephin IV 2 grams IV at calculated rate once; Given slow IV push per pharmarcy tw7 instructions ordered. 07/08 02:58 02:57 59-year-old female, smoker, denies past medical history presents ED today for tw7 complaints of fever, abdominal pain, vomiting, shortness of breath. Patient reports that she was here and diagnosed with a urinary tract infection yesterday. Patient was to be admitted to the hospital yesterday but she left against medical advice. She comes back today for persistent fever, flank pain, [place], vomiting, lightheadedness. She denies chest pain. Intermittent SOB. Urine culture from yesterday grew E. coli sensitive to ceftriaxone. 03:01 02:[address]
--- NOTE | 2025-07-08 02:51 | P.HP ---
Certification for Inpatient Patient admitted to: Inpatient With expected LOS: >2 Midnights Practitioner: I am a practitioner with admitting privileges, knowledge of patient current condition, hospital course, and medical plan of care. Services: Services provided to patient in accordance with Admission requirements found in Title 42 Section 412.3 of the Code of Federal Regulations Patient History Date of Service: 07/08/25 Reason for admission: Abdominal pain History of Present Illness: 59 yrs old Female with past medical history of hypertension brought to ER with generalized weakness and fever and nausea and abdominal pain which has been going over the last 4 days. And the symptoms were progressively getting worse. Patient was seen in the ER yesterday and was diagnosed with UTI and pyelonephritis but patient does not want to stay and left AMA only to return back today with worsening of symptoms. Denies any sick contacts. Patient denies any chest pain at this time. Associated with fever and chills. Associated dysuria as well. Patient was assessed in the ER for further management of pyelonephritis with sepsis Allergies Sulfa (Sulfonamide Antibiotics) [Sulfa(Sulfonamide Antibiotics)] Allergy (Verified 02/24/12 19:02) Shortness of breath Home medications list reviewed: Yes Home Medications: Trazodone [Desyrel] 150 mg PO BEDTIME 06/03/20 lisinopriL [Zestril] 20 mg PO DAILY 06/03/20 - Past Medical/Surgical History Diabetic: No Past Medical History: Reviewed- Non-Contributory -: HTN -: Insomnia Past Surgical History: Reviewed- Non-Contributory -: Ankle -: lump removed from right breast - Family History Family History: Reviewed- Non-Contributory - Social History Smoking Status: Never smoker Alcohol use: Yes CD- Drugs: No Caffeine use: Yes Review of Systems 10-point ROS is otherwise unremarkable Other: Constitutional: Reports: generalized weakness. Skin: Denies: rash. Allergy/Immun: Denies: rhinorrhea, sneezing. Eyes: Denies: visual loss/blurred. ENT: Denies: earache, nasal congestion. Respiratory: Denies: non productive cough. Cardiovascular: Denies: chest pain, palpitations. GI: Denies: diarrhea, nausea. : Denies: dysuria. Musculoskeletal: Reports: arthritis. Denies: extremity pain. Heme: Denies: bleeding. Endocrine: Denies: polydipsia. Neuro: Reports: dizziness, gait problem, lightheaded, spinning sensation. Psych: Reports: anxiety. All systems rev & neg: except as noted Physical Examination - Vital Signs Temperature: 99.8 F Blood Pressure: 132/72 Pulse: 98 Respirations: 18 Pulse Ox (%): 94 - Physical Exam General: Alert, Oriented x3, Moderate distress HEENT: Atraumatic, Normocephalic Neck: Supple Respiratory: Clear to auscultation bilaterally, Normal air movement Cardiovascular: Normal pulses, Regular rate/rhythm, Normal S1 S2 Capillary refill: <2 Seconds Gastrointestinal: Soft and benign, W/out hepatosplenomegaly, Tenderness Musculoskeletal: No clubbing, No swelling Integumentary: No rashes Neurological: Other (Alert awake nonfocal) Lymphatics: No axilla or inguinal lymphadenopathy Assessment and Plan - Plan Sepsis due to pyelonephritis Pyelonephritis UTI with urine culture came back positive for E. coli Started on IV hydration I started on IV antibiotic Get cultures Change antibiotic as per sensitivity Monitor lactic acid levels Hypertension Continue home medications As needed Insomnia Continue trazodone GI/DVT prophylaxis Advanced directive full code Discharge Plan: Home Plan to discharge in: 48 Hours - Advance Directives Does patient have a Living Will: No Does patient have a Durable POA for Healthcare: No - Code Status/Comfort Care Code Status: Full Code Time Spent Managing Pts Care (In Minutes): 48
[2025-07-08 03:54] LABS: Absolute Lymphocytes (CBC) 1.4 K/uL (0.7-4.9); Hematocrit 37.4 % (36.0-45.0); Hemoglobin 12.7 g/dL (12.0-15.0); MCH 28.0 pg (27.0-35.0); MCHC 33.9 g/dL (32.0-36.0); MCV 82.5 fL (80-100); MPV 8.5 fL (7.6-11.3); Nucleated RBC Absolute Count 0.0 (0-0); Nucleated Red Blood Cells % 0.0 % (0-0); RBC Red Blood Cell Count 4.53 M/uL (3.86-4.86); White Blood Count 13.00 thou/uL (4.3-10.9)
[2025-07-08 04:00] LABS: D-Dimer 2.215 FEUug/mL (0-0.500); PT Prothrombin Time 14.0 SECONDS (10-13.0); Protime INR 1.25
[2025-07-08 04:12] LABS: ALT/SGPT 30 U/L (13-56); Albumin 2.5 g/dL (3.4-5.0); Albumin/Globulin Ratio 0.6 (1.1-1.8); Alkaline Phosphatase 131 U/L (45-117); Anion Gap 11.3 mEq/L (5.0-15.0); BUN Blood Urea Nitrogen 18 mg/dL (7-18); Bilirubin Indirect, Calculated 0.2 mg/dL (0.2-0.8); Globulin 4.3 g/dL (2.3-3.5); Glucose Level 104 mg/dL (74-106); Magnesium 1.9 mg/dL (1.6-2.4); NT PRO-BNP 691 pg/mL (<125); Potassium 3.3 mEq/L (3.5-5.1); Troponin High Sensitivity 23.7 pg/mL (<58.9)
[2025-07-08 04:16] LABS: AST/SGOT < 10 U/L (15-37)
[2025-07-08] MEDS: NA CHLORIDE 0.9% 1,000 ML IV SCH (05:27)
--- NOTE | 2025-07-08 05:33 | RAD REPORT ---
CLINICAL HISTORY: SOB. COMPARISON: None. TECHNIQUE: XR CHEST 1 VIEW 07/07/2025 11:25 PM CDT FINDINGS: Cardiac silhouette is normal in size. Lungs are clear without consolidation, atelectasis, mass or martin ma. There is no pleural effusion. There is no pneumothorax. There are no acute osseous findings. IMPRESSION: Clear lungs. Electronically signed by: James Qureshi MD 07/07/2025 11:58 PM CDT RP Due to temporary technical issues with the PACS/[facility] reporting system, reports are being annmarie d by the in-house radiologist without review as a courtesy to ensure prompt reporting the interpreting radiologist is fully responsible for the content of the report. Transcribed Date/Time: 07/08/2025 5:33 AM
[2025-07-08 05:52] VITALS: BMI 24.1
--- NOTE | 2025-07-08 09:17 | P.PN ---
Date of Service: 07/08/25 Patient is admitted for sepsis secondary L pyelonephritis. She has E. coli bacteremia, Ucx pending. Currently on Ceftriaxone. Discharge once urine cultures have been finalized.
[2025-07-08] MEDS: ENOXAPARIN 40 MG/0.4 ML SQ SCH (09:29)
[2025-07-08] MEDS: ACETAMINOPHEN 325 MG TABLET PO PRN (09:30)
[2025-07-08] MEDS: Mupirocin NASAL 2 APPL/1 GM TUBE NAS SCH (09:31)
[2025-07-08] MEDS: POTASSIUM 25 MEQ EFFERV TAB PO ONE (09:43)
[2025-07-08] MEDS: HYDRALAZINE HCL 25 MG TABLET PO SCH ×2 (11:30→21:54)
[2025-07-08] MEDS: HYDROMORPHONE ORAL 2 MG TAB PO PRN (11:30)
--- NOTE | 2025-07-08 13:38 | RAD REPORT ---
EXAMINATION: ONE VIEW CHEST XR CLINICAL INDICATION: Female, 59 years old.,PICC line verification TECHNIQUE: Frontal chest projection is submitted. Examination is limited by patient positioning and t echnique. COMPARISON: 07/07/2025 FINDINGS: Left arm PICC with tip at the level of the distal SVC. The lungs are well inflated and clear apart fr om mild left basilar atelectasis, stable.. No pneumothorax or sizable effusion. The heart is normal in size. Mediastinal contours are unremarkable. IMPRESSION: Satisfactory left arm PICC positioning. No acute intrathoracic abnormalities.
[2025-07-08] MEDS ORDERED: NA CHLORIDE 0.9% 1,000 ML IV ONE ×2 (15:55→15:57)
[2025-07-08 16:25] VITALS: O2SAT 96
[2025-07-08] MEDS: TRAZODONE 150 MG TAB PO SCH (21:53)
[2025-07-08] MEDS: CEFTRIAXONE 1,000 MG in NA CHLORIDE 0.9% 50 ML IVPB SCH (22:57)
[2025-07-09 07:29] LABS: Absolute Lymphocytes (CBC) 1.1 K/uL (0.7-4.9); Hematocrit 30.8 % (36.0-45.0); Hemoglobin 10.3 g/dL (12.0-15.0); MCH 27.5 pg (27.0-35.0); MCHC 33.5 g/dL (32.0-36.0); MCV 82.2 fL (80-100); MPV 8.4 fL (7.6-11.3); Nucleated RBC Absolute Count 0.0 (0-0); Nucleated Red Blood Cells % 0.0 % (0-0); RBC Red Blood Cell Count 3.75 M/uL (3.86-4.86); White Blood Count 11.70 thou/uL (4.3-10.9)
[2025-07-09 07:33] LABS: ALT/SGPT 23.0 U/L (13-56); AST/SGOT 19.0 U/L (15-37); Albumin 1.8 g/dL (3.4-5.0); Albumin/Globulin Ratio 0.5 (1.1-1.8); Alkaline Phosphatase 118.0 U/L (45-117); Anion Gap 9.4 mEq/L (5.0-15.0); BUN Blood Urea Nitrogen 17.0 mg/dL (7-18); Globulin 3.5 g/dL (2.3-3.5); Glucose Level 122.0 mg/dL (74-106); Potassium 3.4 mEq/L (3.5-5.1)
--- NOTE | 2025-07-09 09:14 | P.PN ---
Subjective Date of Service: 07/09/25 Chief Complaint: Abdominal pain Subjective: Improving (Patient is afebrile. No CVA tenderness on exam. She has E. coli bacteremia. Urine culture with lactose fermenting gram-negative rods.) Physical Examination - Vital Signs Temperature: 98.6 F Blood Pressure: 134/68 Pulse: 106 Respirations: 14 Pulse Ox (%): 92 - Physical Exam General: In no apparent distress, Cooperative HEENT: Atraumatic, Normocephalic Respiratory: Clear to auscultation bilaterally, Normal air movement Cardiovascular: No edema, Normal pulses, Regular rate/rhythm, Normal S1 S2 Gastrointestinal: Other (No CVA tenderness) Neurological: Normal speech - Studies Microbiology Data (last 24 hrs): 07/08/25 01:20 Blood - Blood Blood Culture Gram Stain - Final 07/08/25 01:20 Blood - Blood Gram Stain - Final Assessment And Plan - Plan Assessment Patient is a 59-year-old female who presented to the ER on the by left AMA due to frustration from multiple unsuccessful blood draws. Blood pressure, however, was obtained and it yielded 2 out of 2 E. coli on 07/06. Her urine culture from 07/06 showed lactose fermenting gram-negative rods. She returned 2 days later with similar symptoms. She still has bacteremia based on blood culture from 07/08. She most likely did not receive adequate treatment as she left AMA. She meets criteria for sepsis. WBC trending down with ceftriaxone. Sepsismost likely from UTI E. coli bacteremia Hypertension Plan: Continue antibiotics via PICC line Narrow based on urine and culture sensitivity. Will most likely escalate this with the lab to expedite sensitivity panel IV fluid infusion Blood pressure control Patient can be discharged once we have sensitivity panel Continue rest of routine home medications
--- NOTE | 2025-07-09 15:51 | P.DS ---
Admission Date: 07/08/25 Discharge Date: 07/09/25 Disposition: ROUTINE DISCHARGE Discharge Condition: GOOD Reason for Admission: Abdominal pain Hospital Course: Patient is a 59-year-old female who initially presented to the ER on the 06 of July but left AMA due to frustration from multiple unsuccessful blood draws. Blood culture, however, was obtained and it yielded 2 out of 2 E. coli on 07/06. Her urine culture from 07/06 pansensitive E. coli at that time. She now returned 2 days later with similar symptoms. She still has bacteremia based on blood culture from 07/08. She met criteria for sepsis during this adm ission. Patient has responded to ceftriaxone. She will be discharged today on a 7-day course of levofloxacin to treat her left pyelonephritis. She did not have CVA tenderness at the time of discharge. Vital Signs/Physical Exam: Temp Pulse Resp BP Pulse Ox 99.7 F 89 20 133/68 93 07/09/25 11:41 07/09/25 11:41 07/09/25 11:41 07/09/25 11:41 07/09/25 11:41 General: Alert, In no apparent distress, Cooperative HEENT: Atraumatic, Normocephalic Respiratory: Clear to auscultation bilaterally, Normal air movement Cardiovascular: No edema, Normal pulses, Regular rate/rhythm, Normal S1 S2 Gastrointestinal: Other (No CVA tenderness) Neurological: Normal speech Laboratory Data at Discharge: WBC 11.70 thou/uL (4.3-10.9) H 07/09/25 06:43 Hgb 10.3 g/dL (12.0-15.0) L D 07/09/25 06:43 Hct 30.8 % (36.0-45.0) L 07/09/25 06:43 Plt Count 219 thou/uL (152-406) 07/09/25 06:43 PT 14.0 SECONDS (10-13.0) H 07/08/25 02:55 INR 1.25 07/08/25 02:55 Sodium 139 mEq/L (136-145) 07/09/25 06:43 Potassium 3.4 mEq/L (3.5-5.1) L 07/09/25 06:43 BUN 17 mg/dL (7-18) 07/09/25 06:43 Creatinine 0.93 mg/dL (0.55-1.02) 07/09/25 06:43 Glucose 122 mg/dL (74-106) H 07/09/25 06:43 Magnesium 1.9 mg/dL (1.6-2.4) 07/08/25 02:55 Total Bilirubin 0.3 mg/dL (0.2-1.0) 07/09/25 06:43 AST 19 U/L (15-37) 07/09/25 06:43 ALT 23 U/L (13-56) 07/09/25 06:43 Alkaline Phosphatase 118 U/L (45-117) H 07/09/25 06:43 Home Medications: Trazodone [Desyrel*] 150 mg PO BEDTIME 06/03/20 lisinopriL [Zestril] 20 mg PO DAILY 06/03/20 Mupirocin Calcium [Bactroban Nasal*] 1 appl DANGELO BID tube 07/09/25 levoFLOXacin [Levaquin*] 750 mg PO DAILY #7 tab 07/09/25 New Medications: levoFLOXacin [Levaquin*] 750 mg PO DAILY #7 tab Followup: Kerry Daley NP [Primary Care Provider] - 1-2 Weeks
[2025-07-09 16:03] VITALS: BP 176/86; TEMP 98.2
[2025-07-09] MEDS: POTASSIUM CL SA 10 MEQ TAB PO ONE (16:34)
== END 2025-07-09 19:45 | disposition home or self-care (01) | DRG 872 ==
LOC: ER 22:38 → ERHOLD 07-08 02:44 → 2ND 07-08 03:13
PROVIDERS: ADMIT Family Medicine; ATTEND Internal Medicine
DX: A41.51 Sepsis due to Escherichia coli [E. coli] (principal); N12 Tubulo-interstitial nephritis, not specified as acute or chronic; Z88.2 Allergy status to sulfonamides; Z79.899 Other long term (current) drug therapy; I10 Essential (primary) hypertension; G47.00 Insomnia, unspecified; Z98.890 Other specified postprocedural states; Z72.0 Tobacco use; J44.9 Chronic obstructive pulmonary disease, unspecified; J43.9 Emphysema, unspecified; F17.210 Nicotine dependence, cigarettes, uncomplicated
CPT/HCPCS: 36415; 36569; 71045; 80048; 80053; 80076; 83605; 83735; 83880; 84145; 84484; 85025; 85379; 85610; 87040; 87205; 93005; 96365; 99285; J0696; J1650; J7030